=== PATIENT | male | born 1935 | race Caucasian/White ===

== ENCOUNTER 2018-09-08 14:38 | Emergency (ER) | payer MEDICARE ==
[2018-09-08 15:22] VITALS: BP 130/70
--- NOTE | 2018-09-08 15:44 | UC ---
Shoulder Pain HPI - HPI Summary HPI Summary: 82 y/o male with h/o stents, on plavix, with h/o L shoulder pain, was seen in [place] diagnosed with bursitis, given medrol dose lalo with minimal relief, pain now continues, decreased ROM. tylenol no relief. No prior PT, no injections in past - History of Current Complaint Chief Complaint: UCUpperExtremity Stated Complaint: SHOULDER PAIN Time Seen by Provider: 09/08/18 15:29 Hx Obtained From: Patient Onset/Duration: Gradual Onset, Lasting Weeks, Worse Since - worsening since steroids stopped Severity Initially: Moderate Severity Currently: Moderate Location Of Pain: Is Discrete @ - left shoulder Pain Intensity: 5 Pain Scale Used: 0-10 Numeric - Allergies/Home Medications Allergies/Adverse Reactions: Allergies Allergy/AdvReac Type Severity Reaction Status Date / Time No Known Allergies Allergy Verified 09/08/18 15:22 Home Medications: Home Medications Apixaban [Eliquis] 5 mg PO BID 09/08/18 [History Confirmed 09/08/18] PMH/Surg Hx/FS Hx/Imm Hx Previously Healthy: Yes - cardiac stents - Surgical History Surgical History: Yes Surgery Procedure, Year, and Place: Mitral valve replacement x 4, Aortic valve x 2 - Family History Known Family History: Positive: Cardiac Disease - Brother - Social History Alcohol Use: Rare Substance Use Type: None Smoking Status (MU): Never Smoked Tobacco Have You Smoked in the Last Year: No Review of Systems Motor: Decreased ROM Musculoskeletal: Arthralgia, Myalgia Is Patient Immunocompromised?: No All Other Systems Reviewed And Are Negative: Yes Physical Exam Triage Information Reviewed: Yes Appearance: Well-Appearing, No Pain Distress, Well-Nourished Vital Signs: Initial Vital Signs Temp 98.0 F 09/08/18 15:16 Pulse 60 09/08/18 15:16 Resp 18 09/08/18 15:16 BP 130/70 09/08/18 15:16 Pulse Ox 99 09/08/18 15:16 Vital Signs Reviewed: Yes Musculoskeletal: Positive: Other: - L shoulder- decreased ROM FF- 70, ABD- 70, + speed, + empty can, TTP over biceps tendon. neg bear, belly. sensation intact, decreased strenght with resistence to FF, ABD. Neurological Exam: Normal Psychological Exam: Normal Skin Exam: Normal Shoulder Course/Dx - Course Course Of Treatment: attempted to get into ortho, will try to make appointment for wednesday. Tylenol for pain, ice. exercises given - Differential Dx/Diagnosis Provider Diagnoses: rotator cuff tendonitis Discharge - Sign-Out/Discharge Documenting (check all that apply): Patient Departure All imaging exams completed and their final reports reviewed: No Studies - Discharge Plan Condition: Good Disposition: HOME Patient Education Materials: Rotator Cuff Tendinitis (ED) Referrals: Alexei Ruby MD [Primary Care Provider] - Additional Instructions: - Follow up with orthopedics [phone] - Tylenol as needed for pain, Ice - continue to do shoulder exercises - Billing Disposition and Condition Condition: GOOD Disposition: Home
--- NOTE | 2018-09-08 16:41 | RAD ---
INDICATION: Left shoulder pain x1 month COMPARISON: Chest x-ray June 17, 2017 TECHNIQUE: 4 views of the left shoulder were obtained. FINDINGS: Stable healed rib fractures are noted at the lateral left ribs. There is evidence of a healed left mid clavicle fracture as well. Overlying the superior lateral left humeral head there is flattening of the normal contour of the humeral head as well as faint linear densities adjacent to the bone. There is mild sclerosis of the bony glenoid labrum with irregularity along the inferior margin. IMPRESSION: 1. FLATTENING OF THE SUPERIOR LATERAL MARGIN OF THE LEFT HUMERAL HEAD WITH MILD FOCAL SCLEROSIS COULD BE SEEN IN THE SETTING OF PRIOR DISLOCATION WHICH ALSO CORRESPONDS TO THE SCLEROTIC IRREGULARITY ALONG THE INFERIOR MARGIN OF THE BONY GLENOID LABRUM. 2. LINEAR DENSITIES IMMEDIATELY ADJACENT TO THIS PORTION OF THE HUMERAL HEAD COULD BE SEEN IN THE SETTING OF CALCIFICATION OF THE SUPRASPINATUS TENDON. 3. EVIDENCE OF HEALED LEFT RIB AND LEFT CLAVICLE FRACTURES.. If the patient's symptoms persist, follow-up imaging is recommended.
== END 2018-09-08 16:31 | disposition home or self-care (01) ==
LOC: UCEAST 14:38
DX: M75.102 Unspecified rotator cuff tear or rupture of left shoulder, not specified as traumatic (principal); Z79.01 Long term (current) use of anticoagulants; Z95.2 Presence of prosthetic heart valve; Z95.5 Presence of coronary angioplasty implant and graft; Z82.49 Family history of ischemic heart disease and other diseases of the circulatory system
CPT/HCPCS: 99212; G0463

== ENCOUNTER 2019-12-18 11:33 | Observation (INO) | payer MEDICARE ==
[2019-12-18] MEDS ORDERED: Diazepam TAB(*) 5 MG ONE (14:21)
[2019-12-18] MEDS ORDERED: ceFAZolin 1 GM* X ONE DOSE (AddVan) IVPB ×2 (14:30)
[2019-12-18] MEDS ORDERED: Lidocaine 1% INJ* 10 MG/ML 30 ML SDV ONE (15:00)
[2019-12-18] MEDS ORDERED: fentaNYL* 50 MCG/ML 2 ML VIAL (100 MCG VIAL) ONE (15:00)
[2019-12-18] MEDS ORDERED: Midazolam* 1 MG/ML 5 ML VIAL (5 MG) ONE (15:00)
[2019-12-18] MEDS ORDERED: ceFAZolin VIAL 1 GM in NS *SYRINGE * * 10 ML ONE (15:00)
[2019-12-18] MEDS ORDERED: Acetaminophen TAB* 325 MG PO PRN (16:21)
[2019-12-18] MEDS ORDERED: oxyCODONE/Acetamin 5/325 MG* TAB PO PRN (16:21)
[2019-12-18] MEDS: amLODIPine TAB* 5 MG PO SCH (21:43)
[2019-12-18] MEDS: ceFAZolin 1 GM ADVAN(*) 1 GM in NS 0.9% 50 ML* 50 ML IVPB SCH (21:43)
--- NOTE | 2019-12-19 03:46 | OP ---
CC: Dr. Pérez; Dr. Ruby * DATE OF OPERATION: 12/18/19 - ROOM #447 DATE OF : 37 SURGEON: Cassius Fairchild MD ANESTHESIA: Local anesthesia with conscious sedation. PRE-OP DIAGNOSES: 1. Atrial fibrillation. 2. Tachybrady syndrome. POST-OP DIAGNOSES: 1. Atrial fibrillation. 2. Tachybrady syndrome. OPERATIVE PROCEDURE: Single chamber pacemaker implantation. INDICATIONS: The patient is an 84-year-old gentleman with a history of atrial fibrillation, history of aortic valve replacement, who has been followed by Dr. Pérez. Event monitor recently has shown episodes of tachybrady syndrome with heart rates down to 40 beats per minute, has heart rates up to 120 beats per minute. The patient also has severe carotid stenosis, which is concerning for low perfusion given his low heart rates. Permanent pacemaker was recommended. ESTIMATED BLOOD LOSS: Nil. COMPLICATIONS: None. DESCRIPTION OF PROCEDURE: The patient was brought to the procedure room in a fasting state. Informed consent had been obtained prior to the procedure. All labs had been reviewed. The patient's Eliquis had been held for 2 days. The patient was placed supine on the procedure table. His left deltopectoral area was cleaned and draped in the usual fashion. 1% lidocaine was used for local anesthesia. Under ultrasound guidance, the axillary vein was entered by a Seldinger technique and a guidewire was placed. A 3-cm incision was made in the pectoral area and blunt dissection was carried down to the pectoral fascia. A pocket was fashioned for the pacemaker. Over the guidewire, a 7-Indian sheath introducer was placed, through which a right ventricular lead was advanced to the RV apex. The right ventricular lead is a Medtronic model 5076, serial #[id number] and had a R-wave sensitivity of 5.8, impedance 795 ohms, threshold 0.4 volts at 0.5 milliseconds. The ventricular lead was sutured to the pectoral fascia. The pocket was flushed. A generator was attached to the ventricular lead. The generator is a Medtronic model W3SR01, serial # [id number]. The device was placed in the pocket. The surgical incision was closed in 3 layers. The patient was returned to the holding area in stable condition. [id number]/[facility] #: [id number] VENANCIO
[2019-12-19] MEDS: ceFAZolin 1 GM ADVAN(*) 1 GM in NS 0.9% 50 ML* 50 ML IVPB SCH (06:03)
[2019-12-19] MEDS ORDERED: Aspirin EC TAB* 81 MG TAB.EC PO SCH (09:00)
[2019-12-19] MEDS ORDERED: Metoprolol Tartrate TAB* 25 MG PO SCH (09:00)
[2019-12-19] MEDS ORDERED: Losartan TAB* 25 MG PO SCH (09:00)
[2019-12-19] MEDS: amLODIPine TAB* 5 MG PO SCH (09:19)
--- NOTE | 2019-12-19 10:44 | DS ---
CC: Dr. Ruby * DISCHARGE SUMMARY: DATE OF ADMISSION: 12/18/19 ANTICIPATED DATE OF DISCHARGE: Pending no complications, 12/19/19. ATTENDING PHYSICIAN: Dr. Cassius Fairchild, Cardiology.* (DICTATED BY JIL LUIS NP) PRIMARY MOTHERCRAFT NURSE: Dr. Dayne Pérez. PRIMARY PHYSICIAN: Dr. Ruby. ADMITTING DIAGNOSES: 1. Tachybrady syndrome here for elective single-chamber pacemaker implantation. 2. Permanent atrial flutter, on Eliquis therapy. 3. History of high-grade left internal carotid artery stenosis and left vertebral artery stenosis on aspirin and Crestor therapy to follow up with vascular surgeon Dr. Richter on 12/21/19. 4. History of hypertension, on amlodipine and Inspira therapy DISCHARGE DIAGNOSES: 1. Tachybrady syndrome status post successful single-chamber pacemaker implantation 12/18/19, will be discharged home on Keflex 250 mg p.o. t.i.d. for 3 days then stop. To resume Eliquis 12/19/19 at 6 p.m. Device interrogation prior discharge was normal. Right ventricle lead pacing threshold was 0.5 V at 0.4 milliseconds. To follow up with Shaneka Clay, 12/26/19 at 9:15 a.m. 2. History of permanent atrial fibrillation, on Eliquis therapy. 3. History of high-grade internal carotid artery stenosis and left vertebral artery stenosis following Dr. Richter, on aspirin and Crestor therapy. 4. History hypertension, on amlodipine and Avapro therapy. PROCEDURES PERFORMED: The patient underwent successful single-chamber pacemaker implantation by Dr. Cassius Fairchild 12/18/19. The right ventricle lead as a Medtronic model 5076, serial number [id number]. The generator is Medtronic model W3SR01, serial number [id number] COMPLICATIONS: None thus far. COURSE HOSPITAL STAY: This is a pleasant 84-year-old male patient who follows Dr. Dayne Pérez of our practice due to notable history of permanent AFib, on Eliquis therapy; high-grade left internal carotid artery stenosis and left vertebral artery stenosis, to see Dr. Richter, vascular surgeon in consultation on 12/21/19. He recently underwent an outpatient ambulatory event monitor which revealed a tachybrady syndrome with heart rate as low as 40 beats per minute and as high as 20 beats per minute. Given concern for low perfusion due to heart rates in the setting of high-grade carotid and vertebral artery stenosis, the patient presented for elective permanent pacemaker implantation 12/18/19. Prior to having procedures performed, he had basic blood work on 12/15/19. White count 11.4, hemoglobin 15.8, sodium 142, potassium 4.5, creatinine 1.29. He underwent the above-mentioned procedure, post procedure was transferred 4 [facility] where he has been monitored on telemetry. He offers no complaints at this current time. Most recent set of vital signs: Temperature 97.4, pulse 63 , respirations 16, oxygenation 96% on room air blood pressure 145/67. There is no blood work this morning to review. He offers no complaints. He has been up and ambulating in halls with no difficulty. Denies chest pain, shortness of breath, dizziness, or palpitations. He is to resume Eliquis starting at 6 p.m. on 12/19/19. This morning device interrogation was reviewed. Right ventricular pacing threshold is 0.5 V 0.4 milliseconds. There was no VT. He has known permanent AF. He is ventricularly pacing 81.3% of the time, normal device function. This morning's chest x-ray was negative for cardiopulmonary process, left anterior device site was examined. There is slight tenderness with palpation, no evidence of pocket hematoma. No inflammation. No oozing. No bruising. He has 6 enid in situ, edges are well approximated. Again, no evidence of pocket hematoma, dressing was changed. Wound care was reviewed with patient. The patient is stable and asymptomatic. Plan is discharge home today. DISCHARGE CONDITION/ DISPOSITION: Stable to be discharged home. DISCHARGE MEDICATIONS: Include: 1. Keflex 250 mg p.o. t.i.d. 2. Aspirin 81 mg a day. 3. Eliquis 5 mg p.o. b.i.d. (first dose 6 p.m. 12/19/19). 4. Amlodipine 5 mg p.o. b.i.d. 5. Avapro 150 mg p.o. b.i.d. 6. Inspra 25 mg a day. 7. Rosuvastatin 10 mg a day. 8. Fish oil 1000 mg p.o. daily. 9. Multivitamin as directed. 10. K-Dur 20 mEq a day. DISCHARGE ACTIVITY: The patient was advised to not lift more than 5 pounds until further directed. He is aware he may shower starting 12/20/19, however, he is not to swim, bathe, or soak left anterior device site wound. I reviewed wound care. He is aware to change dressing daily until 12/25/19, then leave open to air. He is aware that if he should notice any oozing, inflammation, irritation, swelling, or pain he is to contact our practice. I advised him to wear left arm immobilizer as directed. He states that he is compliant and is aware to not lift the left arm above shoulder or to reach behind him. I informed him that it is okay if he does not wear left immobilizer during daytime hours if he is compliant with left arm restrictions, however, he needs to wear at nighttime. He is aware to avoid working out until further directed as well. We will discuss driving at follow up appointment on 12/26/19. Outpatient labs to be obtained, none. FOLLOWUP APPOINTMENTS: 1. The patient is to follow primary Dr. Ruby in 7 to 10 days number. 2. Shaneka Clay on 12/18/19 at 9:[address] Richter on 12/21/[address] Hammonds has personally seen and examined the patient and agrees with the above plan. JIL LUIS, JANNA [id number]/[facility] #: [id number] VENANCIO
[2019-12-19 12:03] VITALS: BP 134/72
== END 2019-12-19 12:10 | disposition home or self-care (01) ==
LOC: CHICATH 11:33 → INTOOBSV 16:21 → MEDTELE 16:21
PROVIDERS: ADMIT Specialist; ATTEND Specialist
DX: I49.3 Ventricular premature depolarization (principal); I48.3 Typical atrial flutter; I49.5 Sick sinus syndrome; I48.21 Permanent atrial fibrillation; I25.10 Atherosclerotic heart disease of native coronary artery without angina pectoris; I10 Essential (primary) hypertension; E78.00 Pure hypercholesterolemia, unspecified; R94.31 Abnormal electrocardiogram [ECG] [EKG]; Z79.82 Long term (current) use of aspirin; Z79.899 Other long term (current) drug therapy; Z79.01 Long term (current) use of anticoagulants; Z95.4 Presence of other heart-valve replacement
CPT/HCPCS: 33207; 71045; 71046; 93005; 99156; 99157; A9270-GY; C1786; C1892; C1898; G0378; J0690; J2250; J3010

== ENCOUNTER 2020-01-01 19:11 | Emergency (ER) | payer MEDICARE ==
--- OUTSIDE RECORDS SUMMARY | 2020-01-01 19:26 | XMS REPORT | Continuity of Care Document ---
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 Onset: 03/30/2012 Transplantation of heart valve Dayne Pérez M.D. Onset: 03/30/2012 Coronary arteriosclerosis Dayne Pérez M.D. Onset: 03/30/2012 Benign essential hypertension Dayne Pérez M.D. Onset: 03/30/2012 Malignant essential hypertension Dayne Pérez M.D. Onset: 06/04/2014 Pure hypercholesterolemia Dayne Pérez M.D. Onset: 06/04/2014 Hemoptysis Michelle Geller MD Onset: 07/21/2017 Social History Type Date Description Comments Sex Unknown Tobacco Use Start: Unknown Never Smoked Cigarettes Smoking Status Reviewed: 01/01/20 Never Smoked Cigarettes ETOH Use Denies alcohol use Tobacco Use Start: Unknown Patient has never smoked Recreational Drug Use Never Used Drugs Exercise Type/Frequency Exercises regularly 30 mins on treadmill 3 days weekly, and ellipitical and free weights. Bikes in summer Allergies, Adverse Reactions, Alerts Description No Known Drug Allergies Medications Active Medications SIG Qnty Indications Ordering Provider Date Eliquis 1 by mouth twice 180tabs I48.3 Dayne Paul 04/06/2018 5mg Tablets a day Edwina Pérez Crestor 1 by mouth every 90tabs Dayne Paul 08/11/2016 10mg Tablets day Edwina Pérez Inspra 1 by mouth every 30tabs Shaneka Clay, 05/14/2015 25mg Tablets day N.P. Avapro 1 by mouth every 90tabs Dayne Paul 12/29/2012 150mg Tablets day Edwina Pérez Potassium Chloride 1 by mouth every 90tabs Dayne Paul 02/09/2012 ER day Edwina Pérez 20Meq Tablets ER Amlodipine Besylate 1 by mouth twice 180tabs Dayne Paul 11/19/2011 a day Edwina Pérez 5mg Tablets Multi Vitamin 1 by mouth every Unknown day Tablets Fish Oil 1 tab by mouth Unknown 1000mg every morning Capsules Cephalexin Take 1 tab po 20caps Sabrina Ferguson, 500mg qid M.D. Capsules Immunizations Description No Information Available Vital Signs Date Vital Result Comment 01/01/2020 8:56am Height 69.5 inches 5'9.50" Weight 175.00 lb Heart Rate 60 /min BP Systolic 132 mmHg BP Diastolic 80 mmHg Respiratory Rate 12 /min Body Temperature 96.7 F Pain Level 2 BMI (Body Mass Index) 25.5 kg/m2 12/29/2019 11:28am Height 70 inches 5'10" Weight 176.00 lb with shoes Heart Rate 72 /min BP Systolic Sitting 130 mmHg rue reg cuff BP Diastolic Sitting 68 mmHg rue reg cuff BP Systolic Standing 128 mmHg rue reg cuff BP Diastolic Standing 72 mmHg rue reg cuff Respiratory Rate 14 /min BMI (Body Mass Index) 25.3 kg/m2 Ejection Fraction 55-60% echo.07/08/17 Results Test Acquired Date Facility Test Result H/L Range Note Pre Cath 12/15/2019 [facility] Partial 43.2 seconds High 26.0- 38.[address] [place] [address] PTT [phone] CBC Auto 12/15/2019 [facility] White Blood 11.4 10^3/uL High 3.5-10.[address] [place] [address] [phone] Red Blood Count 5.03 10^6/uL Normal 4.18-5.48 Hemoglobin 15.8 g/dL Normal 14.0-18.0 Hematocrit 47 % Normal 42-52 Mean Corpuscular Volume 92 fL Normal 80-94 Mean Corpuscular Hemoglobin 31 pg Normal 27-31 Mean Corpuscular HGB Conc 34 g/dL Normal 31-36 Red Cell Distribution Width 14 % Normal 10-15 Platelet Count 177 10^3/uL Normal 150-450 Mean Platelet Volume 8.2 fL Normal 7.4-10.4 Abs Neutrophils 4.1 10^3/uL Normal 1.5-7.7 Abs Lymphocytes 6.0 10^3/uL High 1.0-4.8 Abs Monocytes 1.0 10^3/uL High 0-0.8 Abs Eosinophils 0.3 10^3/uL Normal 0-0.6 Abs Basophils 0.1 10^3/uL Normal 0-0.2 Abs Nucleated RBC 0.0 10^3/uL Granulocyte % 36.1 % Lymphocyte % 52.5 % Monocyte % 8.5 % Eosinophil % 2.3 % Basophil % 0.6 % Nucleated Red Blood Cells % 0.2 Inr/Protime 12/15/2019 [facility] Inr 1.09 Normal 0.82-1.[address] [place] [address] [phone] Basic Metabolic 12/15/2019 [facility] Sodium 142 mmol/L Normal 135-145 [place] [address] [phone] Potassium 4.5 mmol/L Normal 3.5-5.0 Chloride 106 mmol/L Normal 101-111 Co2 Carbon Dioxide 29 mmol/L Normal 22-32 Anion Gap 7 mmol/L Normal 2-11 Glucose 125 mg/dL High 70-100 Blood Urea Nitrogen 29 mg/dL High 6-24 Creatinine 1.29 mg/dL High 0.67-1.17 BUN/Creatinine Ratio 22.5 High 8-20 Calcium 10.2 mg/dL Normal 8.6-10.3 Egfr Non- 53.2 >60 Egfr 64.4 >60 2 Laboratory test 12/15/2019 [facility] Pathologist (SEE [address] Review NOTE) [place] [address] [phone] Laboratory test 12/08/2019 [facility] Pathologist (SEE [address] Review NOTE) [place] [address] [phone] Manual 12/08/2019 [facility] Immature 1.0 % Normal 0-[address] [place] [place] [address] [phone] Neutrophil % 44.0 % Band % 1.0 % Normal 0-8 Lymphocytes % 27.0 % Monocytes % 6.0 % Eosinophils % 1.0 % Variant Lymph % 21.0 % High 0-6 RBC Morphology Normal Normal Laboratory test 12/08/2019 [facility] Magnesium 2.2 mg/dL Normal 1.9-2.[address] [place] [address] [phone] TSH (Thyroid Stim Horm) 2.40 mcIU/mL Normal 0.34-5.60 CBC Auto 12/08/2019 [facility] White Blood 14.6 10^3/uL High 3.5-10.[address] [place] [address] [phone] Red Blood Count 5.11 10^6/uL Normal 4.18-5.48 Hemoglobin 16.3 g/dL Normal 14.0-18.0 Hematocrit 47 % Normal 42-52 Mean Corpuscular Volume 92 fL Normal 80-94 Mean Corpuscular Hemoglobin 32 pg High 27-31 Mean Corpuscular HGB Conc 35 g/dL Normal 31-36 Red Cell Distribution Width 14 % Normal 10-15 Platelet Count 188 10^3/uL Normal 150-450 Mean Platelet Volume 8.5 fL Normal 7.4-10.4 Abs Neutrophils 5.6 10^3/uL Normal 1.5-7.7 Abs Lymphocytes 7.5 10^3/uL High 1.0-4.8 5 Abs Monocytes 1.1 10^3/uL High 0-0.8 Abs Eosinophils 0.3 10^3/uL Normal 0-0.6 Abs Basophils 0.1 10^3/uL Normal 0-0.2 Abs Nucleated RBC 0.0 10^3/uL Granulocyte % 38.6 % Lymphocyte % 51.2 % Monocyte % 7.7 % Eosinophil % 2.2 % Basophil % 0.3 % Nucleated Red Blood Cells % 0.1 Lipid Profile 12/08/2019 [facility] Triglycerides 141 mg/dL 6 (Trig/Chol/HDL) [address] [place] [address] [phone] Cholesterol 141 mg/dL 7 HDL Cholesterol 37.2 mg/dL 8 LDL Cholesterol 76 mg/dL 9 Comp Metabolic 12/08/2019 [facility] Sodium 141 mmol/L Normal 135-[address] [place] [address] [phone] Potassium 4.8 mmol/L Normal 3.5-5.0 Chloride 106 mmol/L Normal 101-111 Co2 Carbon Dioxide 28 mmol/L Normal 22-32 Anion Gap 7 mmol/L Normal 2-11 Glucose 150 mg/dL High 70-100 Blood Urea Nitrogen 28 mg/dL High 6-24 Creatinine 1.18 mg/dL High 0.67-1.17 BUN/Creatinine Ratio 23.7 High 8-20 Calcium 10.3 mg/dL Normal 8.6-10.3 Total Protein 7.2 g/dL Normal 6.4-8.9 Albumin 4.7 g/dL Normal 3.2-5.2 Globulin 2.5 g/dL Normal 2-4 Albumin/Globulin Ratio 1.9 Normal 1-3 Total Bilirubin 0.80 mg/dL Normal 0.2-1.0 Alkaline Phosphatase 129 U/L High 34-104 Alt 22 U/L Normal 7-52 Ast 23 U/L Normal 13-39 Egfr Non- 59.0 >60 Egfr 71.3 >60 10 Lipid Panel - 12/08/2019 [facility] Creatine 95 U/L Normal 10- [address] Kinase(CK) [place] [address] [phone] Standard intensity warfarin therapeutic range: 2.0-3.0 High intensity warfarin therapeutic range: 2.5-3.5 2 Because ethnic data is not always readily available, this report includes an eGFR for both -Americans and non- Americans. The National Kidney Disease Education Program (NKDEP) does not endorse the use of the MDRD equation for patients that are not between the ages of 18 and 70, are , have extremes of body size, muscle mass, or nutritional status, or are non- or non-. According to the National Kidney Foundation, irrespective of diagnosis, the stage of the disease is based on the level of kidney function: Stage Description GFR(mL/min/1.73 m(2)) 1 Kidney damage with normal or decreased GFR 90 2 Kidney damage with mild decrease in GFR 60-89 3 Moderate decrease in GFR 30-59 4 Severe decrease in GFR 15-29 5 Kidney failure <15 (or dialysis) 3 Leukocytosis with mild absolute lymphocytosis noted. Appropriate clinical follow-up and additional studies is warranted. Reviewed by Dr. Velásquez 4 Persistent mild leukocytosis with mild absolute lymphocytosis. A Low-grade lymphoproliferative disorder cannot be excluded. Additional studies as clinically warranted. Reviewed by Dr. Velásquez 5 Consistent with Previous Results Reported on 09/25/19. 6 Desirable: <150 Borderline High: 150-199 High: 200-499 Very High: >500 7 Desirable: <200 Borderline High: 200-239 High: >239 8 Low: <40 Desirable: 40-60 High: >60 9 Desirable: <100 Near Optimal: 100-129 Borderline High: 130-159 High: 160-189 Very High: >189 10 Because ethnic data is not always readily available, this report includes an eGFR for both -Americans and non- Americans. The National Kidney Disease Education Program (NKDEP) does not endorse the use of the MDRD equation for patients that are not between the ages of 18 and 70, are , have extremes of body size, muscle mass, or nutritional status, or are non- or non-. According to the National Kidney Foundation, irrespective of diagnosis, the stage of the disease is based on the level of kidney function: Stage Description GFR(mL/min/1.73 m(2)) 1 Kidney damage with normal or decreased GFR 90 2 Kidney damage with mild decrease in GFR 60-89 3 Moderate decrease in GFR 30-59 4 Severe decrease in GFR 15-29 5 Kidney failure <15 (or dialysis) Procedures Date Code Description Status 12/19/2019 72193 EKG, Interpretation Only Completed 12/18/2019 00073 Perm Pacemaker Ventricular Completed 11/11/2019 18981 Event Monitor/Phys Review/Interp. 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 premature Housing Quality Standard Inspector depolarization I48.3 Typical atrial flutter I49.5 Sick sinus syndrome Z95.2 Presence of prosthetic heart valve I73.9 Peripheral vascular disease, unspecified Office Visit 11/06/2019 [facility] Dayne Paul I49.3 Ventricular 1:40p Cardiology Edwina Pérez premature depolarization R42 Dizziness and giddiness I48.3 Typical atrial flutter I35.0 Nonrheumatic aortic (valve) stenosis E78.00 Pure hypercholesterolemia, unspecified Office Visit 07/03/2019 9:00a [facility] Shaneka SJose I49.3 Ventricular Cardiology Foster, N.P. premature depolarization R42 Dizziness and giddiness I48.3 Typical atrial flutter I35.0 Nonrheumatic aortic (valve) stenosis E78.00 Pure hypercholesterolemia, unspecified I25.10 Athscl heart disease of [place] coronary artery w/o ang pctrs Assessments Date Code Description Provider 01/01/2020 R60.0 Localized edema Carolynn English, [facility] 01/01/2020 R60.0 Localized edema Sabrina Ferguson M.D. 01/01/2020 M25.522 Pain in left elbow Carolynn Tameka, RPA-C 01/01/2020 M25.522 Pain in left elbow Sabrina Ferguson M.D. 12/29/2019 I48.3 Typical atrial flutter Shaneka S. Obed, N.P. 12/29/2019 I49.3 Ventricular premature depolarization Shaneka S. Obed, N.P. 12/29/2019 Z95.2 Presence of prosthetic heart valve Shaneka S. Obed, N.P. 12/29/2019 I73.9 Peripheral vascular disease, unspecified Shaneka S. Foster, N.P. 12/29/2019 M25.522 Pain in left elbow Shaneka S. Obed, N.P. 12/25/2019 Z95.0 Presence of cardiac pacemaker Shaneka S. Obed, N.P. 12/25/2019 I48.3 Typical atrial flutter Shaneka Clay, N.P. 12/25/2019 I49.3 Ventricular premature depolarization Shaneka Clay, N.P. 12/25/2019 Z95.2 Presence of prosthetic heart valve Shaneka Clay, N.P. 12/25/2019 I73.9 Peripheral vascular disease, unspecified Shaneka Clay, N.P. 12/25/2019 L76.32 Postprocedural hematoma of skin and Shaneka Clay, N.P. subcutaneous tissue following other procedure 12/21/2019 Z95.0 Presence of cardiac pacemaker Cait Thtanya, PIPELINE GANG SUPERVISOR 12/21/2019 I49.5 Sick sinus syndrome Cait Patton, PIPELINE GANG SUPERVISOR 12/21/2019 I48.3 Typical atrial flutter Cait Patton, PIPELINE GANG SUPERVISOR 12/18/2019 I49.5 Sick sinus syndrome Cassius Fairchild M.D. 12/15/2019 I49.3 Ventricular premature depolarization Cassius Fairchild M.D. 12/15/2019 I48.3 Typical atrial flutter Cassius Fairchild M.D. 12/15/2019 I49.5 Tachycardia-bradycardia Cassius Fairchild M.D. 12/15/2019 Z95.2 Presence of prosthetic heart valve Cassius Fairchild M.D. 12/15/2019 I73.9 Peripheral vascular disease, unspecified Cassius Fairchild M.D. 11/11/2019 R42 Dizziness and giddiness Dayne Pérez M.D. 11/11/2019 I48.92 Unspecified atrial flutter Dayne Pérez M.D. 11/06/2019 I49.3 Ventricular premature depolarization Dayne Pérez M.D. 11/06/2019 R42 Dizziness and giddiness Dayne Pérez M.D. 11/06/2019 I48.3 Typical atrial flutter Dayne Pérez M.D. 11/06/2019 I35.0 Nonrheumatic aortic (valve) stenosis Dayne Pérez M.D. 11/06/2019 E78.00 Pure hypercholesterolemia, unspecified Dayne Pérez M.D. 07/03/2019 I49.3 Ventricular premature depolarization Shaneka Clay, N.P. 07/03/2019 R42 Dizziness and giddiness Shaneka Clay, N.P. 07/03/2019 I48.3 Typical atrial flutter Shaneka Clay, N.P. 07/03/2019 I35.0 Nonrheumatic aortic (valve) stenosis Shaneka Clay, N.P. 07/03/2019 E78.00 Pure hypercholesterolemia, unspecified Shaneka Clay, N.P. 07/03/2019 I25.10 Atherosclerotic heart disease of [place] Shaneka Clay, N.P. coronary artery with Plan of Treatment Future Appointment(s):01/15/2020 9:45 am - Sabrina Ferguson M.D. at [facility] at [id number]/15/2020 11:30 am - Ica Pacer Schedule at [facility]05/07/2020 3:40 pm - Dayne Pérez M.D. at [facility]01/01/2020 - Carolynn English, [facility]-CR60.0 Localized edemaFollow up: Follow up: 2 edcdmT98.522 Pain in left elbow Functional Status Description No Information Available Mental Status Description No Information Available Referrals Refer to Dr Reason for Referral Status Appt Date Cassius Fairchild MD aflutter with pauses up to 3.8 sec. uncertain Sent 2019 relation to sx's of blurred vision. event monitor in place. carotid disease. please evaluate for pacer. [address] [place] [address] [phone] Jeffrey Mendiola MD carotid stenosis high grade. Sent [address] [place] [address] [phone]
--- OUTSIDE RECORDS SUMMARY | 2020-01-01 19:26 | XMS REPORT | Continuity of Care Document ---
:1935 External Reference #:[id number] Author Name Kaye Pimentel M.D. 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 Onset: 06/07/2014 Social History Type Date Description Comments Sex Unknown Tobacco Use Start: Unknown Nonsmoker Allergies, Adverse Reactions, Alerts Active Allergies Reaction Severity Comments Date NKDA 02/10/2012 Inactive Allergies Nka 03/14/1999 Medications Active Medications SIG Qnty Indications Ordering Provider Date Cephalexin 1 by mouth 30caps L03.113 Kaye Pimentel, 12/29/2019 500mg Capsules three times M.D. daily . Avapro 1 by mouth Alexei Ruby, 12/10/2017 150mg Tablets every day M.D. Crestor 1 by mouth 90tabs Alexei Ruby, 07/14/2017 5mg Tablets every day M.D. Naproxen 1 po bid prn 20tabs Alexei Ruby, 06/07/2014 500mg Tablets pain M.D. take with food Amlodipine Besylate 1 po bid 30tabs Unknown 5mg Tablets KCL 1 po qd Unknown 20Meq Tablet Metoprolol Tartrate 1/2 pill once a 60tabs Unknown 50mg day Tablets Xarelto One 5mg tab by Unknown 10mg Tablets mouth twice daily History Medications Prednisone 3 x 3 days 2 x 18tabs Alexei Ruby, 07/19/2019 - 20mg Tablets 3 days 1 x 3 M.DJose 07/19/2019 days Halobetasol Propionate Use bid 30gm Alexei Ruby, 07/19/2019 - M.DJose 07/19/2019 0.05% Cream Medications Administered in Office Medication SIG Qnty Indications Ordering Provider Date Injection Subcutaneous Or Alexei Ruby M.D. 06/07/2014 Intramuscular Injection Immunizations CPT Code Status Date Vaccine Lot # [id number] Given 10/13/2019 Pneumococcal Conjugate Vacc-13 [id number] Given 09/07/2018 High-Dose, Influenza Virus Vacccine-fluzone 65 and older 32515 Given 09/27/2017 High-Dose, Influenza Virus Vacccine-fluzone 65 [id number] and older 91904 Given 09/07/2016 High-Dose, Influenza Virus Vacccine-fluzone 65 and older 19756 Given 09/25/2015 High-Dose, Influenza Virus Vacccine-fluzone 65 and older 43825 Given 10/01/2014 High-Dose, Influenza Virus Vacccine-fluzone 65 and older 26338 Given 11/17/2012 DO Not Use Split Influenza Virus Vaccine 98067 Given 07/21/2011 DO Not Use Split Influenza Virus Vaccine 66369 Given 08/13/2010 DO Not Use Split Influenza Virus Vaccine 48413 Given 05/21/2010 Tdap Tetanus, W Pertussis [id number] 87945 Given 12/01/2007 DO Not Use Split Influenza Virus Vaccine [id number] 42928 Given 10/29/2006 DO Not Use Split Influenza Virus Vaccine 34052 Given 10/02/2005 Pneumococcal Immunization 07967 Given 10/02/2005 DO Not Use Split Influenza Virus Vaccine 02734 Given 10/17/2004 DO Not Use Split Influenza Virus Vaccine 81232 Given 11/14/2003 DO Not Use Split Influenza Virus Vaccine 08656 Given 11/14/2003 DO Not Use Split Influenza Virus Vaccine 18832 Given 09/28/2002 DO Not Use Split Influenza Virus Vaccine Vital Signs Date Vital Result Comment 12/29/2019 1:45pm BP Systolic 148 mmHg BP Diastolic 78 mmHg Heart Rate 60 /min Body Temperature 97.9 F Respiratory Rate 16 /min Height 69.5 inches 5'9.50" Weight 176.00 lb BMI (Body Mass Index) 25.6 kg/m2 10/13/2019 9:02am BP Systolic 138 mmHg BP Diastolic 86 mmHg Heart Rate 58 /min Body Temperature 98.1 F Respiratory Rate 15 /min O2 % BldC Oximetry 97 % Ra Height 69.5 inches 5'9.50" Weight 174.00 lb BMI (Body Mass Index) 25.3 kg/m2 Results Test Acquired Date Facility Test Result H/L Range Note Comp Metabolic Panel 12/08/2019 [facility] Sodium 141 mmol/L Normal 135-145 Potassium 4.8 mmol/L Normal 3.5-5.0 Chloride 106 [...] Egfr Non- 59.0 >60 Egfr 71.3 >60 1 Lipid Profile (Trig/Chol/HDL) 12/08/2019 [facility] Triglycerides 141 mg/dL 2 Cholesterol 141 mg/dL 3 HDL Cholesterol 37.2 mg/dL 4 LDL Cholesterol 76 mg/dL 5 Laboratory test finding 12/08/2019 [facility] Magnesium 2.2 mg/dL Normal 1.9- 2.7 Creatine Kinase(CK) 95 U/L Normal 10-223 TSH (Thyroid Stim Horm) 2.40 mcIU/mL Normal 0.34-5.60 CBC Auto Diff 12/08/2019 [facility] White Blood Count 14.6 10^3/uL High 3.5- 10.8 Red Blood Count 5.11 10^6/uL Normal 4.18-5.48 [...] 1.5-7.7 Abs Lymphocytes 7.5 10^3/uL High 1.0-4.8 6 Abs Monocytes 1.1 10^3/uL High 0-0.8 Abs Eosinophils 0.3 10^3/uL Normal 0-0.6 Abs Basophils 0.1 10^3/uL Normal 0-0.2 Abs Nucleated RBC 0.0 10^3/uL Granulocyte % 38.6 % Lymphocyte % 51.2 % Monocyte % 7.7 % Eosinophil % 2.2 % Basophil % 0.3 % Nucleated Red Blood Cells % 0.1 Manual Differential 12/08/2019 [facility] Immature Granulocytes 1.0 % Normal 0- 9 Neutrophil % 44.0 % Band % 1.0 % Normal 0-8 Lymphocytes % 27.0 % Monocytes % 6.0 % Eosinophils % 1.0 % Variant Lymph % 21.0 % High 0-6 RBC Morphology Normal Normal Laboratory test 12/08/2019 [facility] Pathologist Review (SEE NOTE) 7 finding Laboratory test 10/13/2019 [facility] Hemoglobin A1c 6.6 % % High 4.1-5. finding (607)- - (Fma) 7 1 Because ethnic data is not always readily [...] 15-29 5 Kidney failure <15 (or dialysis) 2 Desirable: <150 Borderline High: 150-199 High: 200-499 Very High: >500 3 Desirable: <200 Borderline High: 200-239 High: >239 4 Low: <40 Desirable: 40-60 High: >60 5 Desirable: <100 Near Optimal: 100-129 Borderline High: 130-159 High: 160-189 Very High: >189 6 Consistent with Previous Results Reported on 09/25/19. 7 Persistent mild leukocytosis with mild absolute lymphocytosis. A Low-grade lymphoproliferative disorder cannot be excluded. Additional studies as clinically warranted. Reviewed by Dr. Velásquez Procedures Date Code Description Status 10/13/2019 51742 Remove Impact Cerumen Irrigati Completed 10/13/2019 27639 Finger Or Heel Stick Completed 06/18/2015 [id number] Colonoscopy Completed 12/28/2007 55026002 Colonoscopy Completed Medical Devices Description No Information Available Encounters Description No Information Available Assessments Date Code Description Provider 12/29/2019 M79.602 Pain in left arm Kaye Pimentel M.D. 12/29/2019 L03.113 Cellulitis of right upper limb Kaye Pimentel M.D. 10/13/2019 Z00.00 Encounter for general adult medical Alexei Ruby M.D. examination without abnormal findings 10/13/2019 R73.9 Hyperglycemia, unspecified Alexei Ruby M.D. 10/13/2019 H61.23 Impacted cerumen, bilateral Alexei Ruby M.D. 10/13/2019 I48.0 Paroxysmal atrial fibrillation Alexei Ruby M.D. 10/13/2019 Z23 Encounter for immunization Alexei Ruby M.D. Plan of Treatment 12/29/2019 - Kaye Pimentel M.D.M79.602 Pain in left armComments:refer to ortho. ok to take tylenol 650 up to 4 times daily.L03.113 Cellulitis of right upper limbNew Medication:Cephalexin 500 mg - 1 by mouth three times daily .AllComments:Medication Management Patient Understands medications she 's taking? Yes No Are there Barriers to Adherence? Yes No Has the patient been asked about herbal supplements and therapies, and OTC meds? Yes No Care Plan1. Patient has been queried about patient's goals/ preferences and functional/lifestyle goals at relevant visits. If relevant, describe: na2. Treatment goals as explained to the patient: above3. Are there barriers to meeting treatment goals? Yes No If Yes, please describe:4. Self-Management goals as described to the patient: Yes No Functional Status Description No Information Available Mental Status Description No Information Available Referrals Description No Information Available
--- OUTSIDE RECORDS SUMMARY | 2020-01-01 19:27 | XMS REPORT | Continuity of Care Document ---
:1935 External Reference #:[id number] Author Name Dayne Pérez M.D. 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 Avapro 1 by mouth every 90tabs Dayne Paul 12/29/2012 150mg Tablets day Edwina Pérez Potassium Chloride ER 1 by mouth every 90tabs Dayne Paul 02/09/2012 day Edwina Pérez 20Meq Tablets ER Amlodipine Besylate 1 by mouth twice 180tabs Dayne Paul 11/19/2011 5mg a day Edwina Pérez Tablets Multi Vitamin 1 by mouth every Unknown Tablets day Fish Oil 1 tab by mouth Unknown 1000mg every morning Capsules Immunizations Description No Information Available Vital Signs Date Vital Result Comment 12/15/2019 8:26am Height 70 inches 5'10" Weight 178.00 lb with shoes Heart Rate 60 /min BP Systolic Sitting 132 mmHg LA BP Diastolic Sitting 86 mmHg LA BP Systolic Standing 126 mmHg LA BP Diastolic Standing 80 mmHg LA BMI (Body Mass Index) 25.5 kg/m2 Ejection Fraction 55-60% Echo 07/08/17 11/06/2019 1:45pm Height 70 inches 5'10" Weight 177.75 lb with shoes Heart Rate 64 /min BP Systolic Sitting 166 mmHg Lue (regular cuff) BP Diastolic Sitting 78 mmHg Lue (regular cuff) BP Systolic Standing 164 mmHg BP Diastolic Standing 78 mmHg BMI (Body Mass Index) 25.5 kg/m2 Ejection Fraction 55-60% 07/08/2017 Echocardiogram Results Test Acquired Date Facility Test Result H/L Range Note Pre Cath 12/15/2019 [facility] Partial 43.2 seconds High 26.0- 38.[address] [place] [address] PTT [phone] CBC Auto 12/15/2019 [facility] White Blood 11.4 10^3/uL High 3.5-10.[address] [place] [address] [phone] Red Blood Count 5.03 10^6/uL Normal 4.18-5.48 [...] Red Blood Cells % 0.2 Inr/Protime 12/15/2019 [facility] Inr 1.09 Normal 0.82-1.09 1 [address] [place] [address] [phone] Basic Metabolic 12/15/2019 [facility] Sodium 142 mmol/L Normal 135-145 Panel [address] [place] [address] [phone] Potassium 4.5 mmol/L Normal 3.5-5.0 Chloride 106 mmol/L Normal 101-111 Co2 Carbon Dioxide 29 mmol/L Normal 22-32 Anion Gap 7 mmol/L Normal 2-11 Glucose 125 mg/dL High 70-100 Blood Urea Nitrogen 29 mg/dL High 6-24 Creatinine 1.29 mg/dL High 0.67-1.17 BUN/Creatinine Ratio 22.5 High 8-20 Calcium 10.2 mg/dL Normal 8.6-10.3 Egfr Non- 53.2 >60 Egfr 64.4 >60 2 Laboratory test 12/15/2019 [facility] Pathologist (SEE NOTE) 3 finding 101 [facility] [place] [address] [phone] Lipid Panel - 12/08/2019 [facility] Creatine 95 U/L Normal 10- [address] Kinase(CK) 3 [place], [place] [id number] [phone] Comp Metabolic 12/08/2019 [facility] Sodium 141 mmol/L Normal 135-[address] [place] [address] [phone] Potassium 4.8 mmol/L Normal 3.5-5.0 Chloride 106 [...] Egfr Non- 59.0 >60 Egfr 71.3 >60 4 Lipid Profile 12/08/2019 [facility] Triglycerides 141 mg/dL 5 (Trig/Chol/HDL) [address] [place] [address] [phone] Cholesterol 141 mg/dL 6 HDL Cholesterol 37.2 mg/dL 7 LDL Cholesterol 76 mg/dL 8 CBC Auto 12/08/2019 [facility] White Blood 14.6 10^3/uL High 3.5-10.[address] [place] [address] [phone] Red Blood Count 5.11 10^6/uL Normal 4.18-5.48 [...] 1.5-7.7 Abs Lymphocytes 7.5 10^3/uL High 1.0-4.8 9 Abs Monocytes 1.1 10^3/uL High 0-0.8 Abs Eosinophils 0.3 10^3/uL Normal 0-0.6 Abs Basophils 0.1 10^3/uL Normal 0-0.2 Abs Nucleated RBC 0.0 10^3/uL Granulocyte % 38.6 % Lymphocyte % 51.2 % Monocyte % 7.7 % Eosinophil % 2.2 % Basophil % 0.3 % Nucleated Red Blood Cells % 0.1 Laboratory test 12/08/2019 [facility] Magnesium 2.2 mg/dL Normal 1.9-2.7 finding [address] [place] [address] [phone] TSH (Thyroid Stim Horm) 2.40 mcIU/mL Normal 0.34-5.60 Manual 12/08/2019 [facility] Immature 1.0 % Normal 0-9 Differential [address] [facility] [place] [address] [phone] Neutrophil % 44.0 % Band % 1.0 % Normal 0-8 Lymphocytes % 27.0 % Monocytes % 6.0 % Eosinophils % 1.0 % Variant Lymph % 21.0 % High 0-6 RBC Morphology Normal Normal Laboratory test 12/08/2019 [facility] Pathologist Review (SEE NOTE) 10 finding 101 [place] [address] [phone] 1 Standard intensity warfarin therapeutic range: 2.0-3.0 [...] is warranted. Reviewed by Dr. Velásquez 4 Because ethnic data is not always readily [...] 15-29 5 Kidney failure <15 (or dialysis) 5 Desirable: <150 Borderline High: 150-199 High: 200-499 Very High: >500 6 Desirable: <200 Borderline High: 200-239 High: >239 7 Low: <40 Desirable: 40-60 High: >60 8 Desirable: <100 Near Optimal: 100-129 Borderline High: 130-159 High: 160-189 Very High: >189 9 Consistent with Previous Results Reported on 09/25/19. 10 Persistent mild leukocytosis with mild absolute lymphocytosis. A Low-grade lymphoproliferative disorder cannot be excluded. Additional studies as clinically warranted. Reviewed by Dr. Velásquez Procedures Date Code Description Status 11/11/2019 06157 Event Monitor/Phys Review/Interp. Completed 11/06/2019 74178 EKG Tracing & Interpretation Completed 06/21/2019 81099 Holter Monitor Review (24 hr)dr greenwood & interp only Completed Medical Devices Description No Information Available Encounters Type Date Location Provider Dx Diagnosis Office Visit 12/15/2019 [facility] Cassius D. I49.3 Ventricular premature 8:30a Of Rony Fairchild M.D. depolarization I48.3 Typical atrial flutter I49.5 Sick sinus syndrome Z95.2 Presence of prosthetic heart valve I73.9 Peripheral vascular disease, unspecified Office Visit 11/06/2019 [facility] Dayne ArleenJose I49.3 Ventricular 1:40p Cardiology Edwina Pérez premature depolarization R42 Dizziness and giddiness I48.3 Typical atrial flutter I35.0 Nonrheumatic aortic (valve) stenosis E78.00 Pure hypercholesterolemia, unspecified Office Visit 07/03/2019 9:[facility]a [facility] KatJose I49.3 Ventricular Cardiology Obed, N.PJose premature depolarization R42 Dizziness and giddiness I48.3 Typical atrial flutter I35.0 Nonrheumatic aortic (valve) stenosis E78.00 Pure hypercholesterolemia, unspecified I25.10 Athscl heart disease of [place] coronary artery w/o ang pctrs Assessments Date Code Description Provider 12/15/2019 I49.3 Ventricular premature depolarization Cassius Fairchild [...] N.P. 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 coronary artery with 06/21/2019 I49.3 Ventricular premature depolarization Dayne Pérez M.D. 06/21/2019 R00.8 Other abnormalities of heart beat Dayne Pérez M.D. Plan of Treatment Future Appointment(s):05/07/2020 3:40 pm - Dayne P[facility]rez M.D. at [facility]12/15/2019 - Cassius Fairchild M.D.I49.3 Ventricular premature depolarizationNew Orders:Implant Pacemaker, Scheduled: 12/18/19Follow up:1 week after procedureRecommendations:Stop eliquis 2 days before dxrpbfctdR74.3 Typical atrial griycrqR66.5 Tachycardia-zckwjspmsmnD14.2 Presence of prosthetic heart bhluxQ87.9 Peripheral vascular disease, unspecified Functional Status Description No Information Available Mental Status Description No Information Available Referrals Refer to Dr Reason for Referral Status Appt Date Cassius Fairchild MD aflutter with pauses up to 3.8 sec. uncertain Sent 2019 relation to sx's of blurred vision. event monitor in place. carotid disease. please evaluate for pacer. [address] [place] [address] [phone] Jeffrey Mendiola MD carotid stenosis high grade. Sent [address] [place] [address] [phone]
--- OUTSIDE RECORDS SUMMARY | 2020-01-01 19:27 | XMS REPORT | Continuity of Care Document ---
:1935 External Reference #:[id number] Author Name Dayne Pérez M.D. (transmitted by agent of provider Armando Banegas) Address [address] [place] [phone] Care Team Providers Name Role Phone Alexei Ruby MD - Family Medicine Care Team Information Manager Ecommerce [phone] Problems Active Problems Provider Date Aortic valve [...] Unknown Never Smoked Cigarettes Smoking Status Reviewed: 11/06/19 Never Smoked Cigarettes ETOH Use Denies alcohol use Tobacco Use Start: Unknown Patient has never smoked Recreational Drug Use Never Used Drugs Exercise Type/Frequency Exercises regularly 30 mins on treadmill 3 days weekly, and ellipitical and free weights. Bikes in summer Allergies, Adverse Reactions, Alerts Description No Known Drug Allergies Medications Active Medications SIG Qnty Indications Ordering Provider Date Eliquis 1 by mouth 180tabs I48.3 Dayne Paul 04/06/2018 5mg Tablets twice a day Edwina Pérez Crestor 1 by mouth 90tabs Dayne Paul 08/11/2016 10mg Tablets every day Edwina Pérez Inspra 1 by mouth 30tabs Shaneka Clay, 05/14/2015 25mg Tablets every day N.P. Avapro 1 by mouth 90tabs Dayne Paul 12/29/2012 150mg Tablets every day Edwina Pérez Potassium Chloride ER 1 by mouth 90tabs Dayne Paul 02/09/2012 every day Edwina Pérez 20Meq Tablets ER Amlodipine Besylate 1 by mouth 180tabs Dayne Paul 11/19/2011 5mg twice a day Edwina Pérez Tablets Immunizations Description No Information Available Vital Signs Date Vital Result Comment 11/06/2019 1:45pm Height 70 inches 5'10" Weight 177.75 lb with shoes Heart Rate 64 /min BP Systolic Sitting 166 mmHg Lue (regular cuff) BP Diastolic Sitting 78 mmHg Lue (regular cuff) BP Systolic Standing 164 mmHg BP Diastolic Standing 78 mmHg BMI (Body Mass Index) 25.5 kg/m2 Ejection Fraction 55-60% 07/08/2017 Echocardiogram 07/03/2019 8:52am Height 70 inches 5'10" Weight 172.25 lb with shoes Heart Rate 60 /min right radial BP Systolic Sitting 142 mmHg ule, reg cuff BP Diastolic Sitting 80 mmHg ule, reg cuff BP Systolic Standing 144 mmHg ule, reg cuff BP Diastolic Standing 82 mmHg ule, reg cuff BMI (Body Mass Index) 24.7 kg/m2 Ejection Fraction 55-60% echo 07/08/17 Results Description No Information Available Procedures Date Code Description Status 11/06/2019 65429 EKG Tracing & Interpretation Completed 06/21/2019 10028 Holter Monitor Review (24 hr)dr review & interp only Completed 06/19/2019 53329 ECG Monitor/Recording W/Visual Superimposition Scanning Completed 05/30/2019 91224 EKG Tracing & Interpretation Completed Medical Devices Description No Information Available Encounters Type Date Location Provider Dx Diagnosis Office Visit 07/03/2019 [facility] Shaneka Clay, I49.3 Ventricular premature 9:00a N.P. depolarization R42 Dizziness and giddiness I48.3 Typical atrial flutter I35.0 Nonrheumatic aortic (valve) stenosis E78.00 Pure hypercholesterolemia, unspecified I25.10 Athscl heart disease of [place] coronary artery w/o ang pctrs Office Visit 05/30/2019 9:20a [facility] Dayne Paul I48.3 Typical atrial Edwina Pérez flutter I49.3 Ventricular premature depolarization I35.0 Nonrheumatic aortic (valve) stenosis E78.00 Pure hypercholesterolemia, unspecified I10 Essential (primary) hypertension I25.10 Athscl heart disease of [place] coronary artery w/o [facility] pctrs R42 Dizziness and giddiness Assessments Date Code Description Provider 11/06/2019 I49.3 Ventricular premature depolarization Dayne Pérez [...] N.P. 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 coronary artery with 06/21/2019 I49.3 Ventricular premature depolarization Dayne Pérez M.D. 06/21/2019 R00.8 Other abnormalities of heart beat Dayne Pérez M.D. 06/19/2019 R42 Dizziness and giddiness Nurse Visit cc 06/19/2019 I48.92 Unspecified atrial flutter Nurse Visit cc 05/30/2019 I48.3 Typical atrial flutter Dayne Pérez M.D. 05/30/2019 I49.3 Ventricular premature depolarization Dayne Pérez M.D. 05/30/2019 I35.0 Nonrheumatic aortic (valve) stenosis Dayne Pérez M.D. 05/30/2019 E78.00 Pure hypercholesterolemia, unspecified Dayne Pérez M.D. 05/30/2019 I10 Essential (primary) hypertension Dayne Pérez M.D. 05/30/2019 I25.10 Atherosclerotic heart disease of [place] Dayne Pérez M.D. coronary artery with 05/30/2019 R42 Dizziness Dayne Pérez M.D. Plan of Treatment Future Appointment(s):05/07/2020 3:40 pm - Dayne Pérez M.D. at [facility]12/01/2019 9:30 am - Sabrina Cormier NP at [facility]11/06/2019 - Dayne Pérez M.D.I49.3 Ventricular premature ogjllncxchgjvhH65 Dizziness and giddinessNew Xrays:VL Carotid Bilateral, Scheduled: 11/30/19New Orders:Event Monitor, Ordered: 11/06/19Follow up:ov 6 mI48.3 Typical atrial gukfjyjJ07.0 Nonrheumatic aortic (valve) lzeqnsarZ83.00 Pure hypercholesterolemia, unspecified Functional Status Description No Information Available Mental Status Description No Information Available Referrals Description No Information Available
--- OUTSIDE RECORDS SUMMARY | 2020-01-01 19:27 | XMS REPORT | Continuity of Care Document ---
:1935 External Reference #:[id number] Author Name Shaneka Clay N.P. (transmitted by agent of provider Tiffanie Harry) Address [address] 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 Problems Active Problems Provider Date Aortic valve [...] Unknown Never Smoked Cigarettes Smoking Status Reviewed: 12/29/19 Never Smoked Cigarettes ETOH Use Denies alcohol [...] by mouth Unknown 1000mg every morning Capsules Aspirin 81 1 by mouth every Unknown 81mg Tablets day (on hold 12/26) Immunizations Description No Information Available Vital Signs Date Vital Result Comment 12/29/2019 11:28am Height 70 inches 5'10" Weight 176.00 lb with shoes Heart Rate 72 /min BP Systolic Sitting [address] cuff BP Diastolic Sitting 68 mmHg [address] reg cuff BP Systolic Standing 128 mmHg [address] reg cuff BP Diastolic Standing 72 [address] reg cuff Respiratory Rate 14 /min BMI (Body Mass Index) 25.3 kg/m2 Ejection Fraction 55-60% echo.07/08/17 12/25/2019 12:50pm Height 70 inches 5'10" Weight 176.50 lb Heart Rate 72 /min BP Systolic Sitting 144 mmHg ule reg cuff BP Diastolic Sitting 74 mmHg ule reg cuff BMI (Body Mass Index) 25.3 kg/m2 Ejection Fraction 55-60% Echo 07/08/17 Results Test Acquired Date Facility Test Result H/L Range Note Pre Cath 12/15/2019 [facility] Partial 43.2 seconds High 26.0- 38.[address] [place] [address] PTT [phone] CBC Auto 12/15/2019 [facility] White Blood 11.4 10^3/uL High 3.5-10.[address] [place] [address] [phone] Red Blood Count 5.03 10^6/uL Normal 4.18-5.48 [...] Red Blood Cells % 0.2 Inr/Protime 12/15/2019 [facility] Inr 1.09 Normal 0.82-1.09 1 [place], [place] [address] [phone] Basic Metabolic 12/15/2019 [facility] Sodium 142 mmol/L Normal 135-145 [place] [address] [phone] Potassium 4.5 mmol/L Normal 3.5-5.0 Chloride 106 mmol/L Normal 101-111 Co2 Carbon Dioxide 29 mmol/L Normal 22-32 Anion Gap 7 mmol/L Normal 2-11 Glucose 125 mg/dL High 70-100 Blood Urea Nitrogen 29 mg/dL High 6-24 Creatinine 1.29 mg/dL High 0.67-1.17 BUN/Creatinine Ratio 22.5 High 8-20 Calcium 10.2 mg/dL Normal 8.6-10.3 Egfr Non- 53.2 >60 Egfr 64.4 >60 2 Laboratory test 12/15/2019 [facility] Pathologist (SEE [address] Review NOTE) [place] [address] [phone] Laboratory test 12/08/2019 [facility] Pathologist (SEE [address] Review NOTE) [place]EL [place] [address] [phone] Manual 12/08/2019 [facility] Immature 1.0 % Normal 0-[address] [address] [phone] Neutrophil % 44.0 % Band % 1.0 % Normal 0-8 Lymphocytes % 27.0 % Monocytes % 6.0 % Eosinophils % 1.0 % Variant Lymph % 21.0 % High 0-6 RBC Morphology Normal Normal Laboratory test 12/08/2019 [facility] Magnesium 2.2 mg/dL Normal 1.9-2.[address] [place] [address] [phone] TSH (Thyroid Stim Horm) 2.40 mcIU/mL Normal 0.34-5.60 CBC Auto 12/08/2019 [facility] White Blood 14.6 10^3/uL High 3.5-10.[address] [place] [address] [phone] Red Blood Count 5.11 10^6/uL Normal 4.18-5.48 [...] Blood Cells % 0.1 Lipid Profile 12/08/2019 [facility] Triglycerides 141 mg/dL 6 (Trig/Chol/HDL) [address] [place] [address] [phone] Cholesterol 141 mg/dL 7 HDL Cholesterol 37.2 mg/dL 8 LDL Cholesterol 76 mg/dL 9 Comp Metabolic 12/08/2019 [facility] Sodium 141 mmol/L Normal 135-[address] [place] [address] [phone] Potassium 4.8 mmol/L Normal 3.5-5.0 Chloride 106 [...] 71.3 >60 10 Lipid Panel - 12/08/2019 [facility] Creatine 95 U/L Normal 10- [address] Kinase(CK) [place] [address] [phone] 1 Standard intensity warfarin therapeutic range: 2.0-3.0 [...] dialysis) Procedures Date Code Description Status 12/19/2019 21404 EKG, Interpretation Only Completed 12/18/2019 97743 Perm Pacemaker Ventricular Completed 11/11/2019 30538 Event Monitor/Phys Review/Interp. Completed 11/06/2019 73397 EKG Tracing & Interpretation Completed Medical Devices Description No Information Available Encounters Type Date Location Provider Dx Diagnosis Office Visit 12/29/2019 [facility] Shaneka Clay, I48.3 Typical atrial 11:30a Of Service Crew Supervisor N.P. flutter I49.3 Ventricular premature depolarization Z95.2 Presence of prosthetic heart valve I73.9 Peripheral vascular disease, unspecified M25.522 Pain in left elbow Office Visit 12/21/2019 3:40p [facility] Cait Patton, Z95.0 Presence of CENTRIFUGE SEPARATOR OPERATOR cardiac pacemaker I49.5 Sick sinus syndrome I48.3 Typical atrial flutter Office Visit 12/15/2019 8:30a [place] Cassius Eisenberg I49.3 Ventricular Cardiology Roge Fairchild M.D. premature Service Crew Supervisor depolarization I48.3 Typical atrial flutter I49.5 Sick sinus syndrome Z95.2 Presence of prosthetic heart valve I73.9 Peripheral vascular disease, unspecified Office Visit 11/06/2019 [facility] Dayne Paul I49.3 Ventricular 1:40p Cardiology Edwina Pérez premature depolarization R42 Dizziness and giddiness I48.3 Typical atrial flutter I35.0 Nonrheumatic aortic (valve) stenosis E78.00 Pure hypercholesterolemia, unspecified Office Visit 07/03/2019 9:00a [facility] Shaneka Nuñez I49.3 Ventricular Cardiology Foster, N.P. premature depolarization R42 Dizziness and giddiness I48.3 Typical atrial flutter I35.0 Nonrheumatic aortic (valve) stenosis E78.00 Pure hypercholesterolemia, unspecified I25.10 Athscl heart disease of [place] coronary artery w/o ang pctrs Assessments Date Code Description Provider 12/29/2019 I48.3 Typical atrial flutter Shaneka S. Obed, N.P. 12/29/2019 I49.3 Ventricular premature depolarization Shaneka S. Obed, N.P. 12/29/2019 Z95.2 Presence of prosthetic heart valve Shaneka S. Obed, N.P. 12/29/2019 I73.9 Peripheral vascular disease, unspecified Shaneka S. Obed, N.P. 12/29/2019 M25.522 Pain in left elbow Shaneka SJose Clay, N.P. 12/25/2019 Z95.0 Presence of cardiac pacemaker Shaneka S. Obed, N.P. 12/25/2019 I48.3 Typical atrial flutter Shanekasadia Clay, N.P. 12/25/2019 I49.3 Ventricular premature depolarization Shaneka Clay, N.P. 12/25/2019 Z95.2 Presence of prosthetic heart valve Shaneka Clay, N.P. 12/25/2019 I73.9 Peripheral vascular disease, unspecified Shaneka Clay, N.P. 12/25/2019 L76.32 Postprocedural hematoma of skin and Shaneka Clay, N.P. subcutaneous tissue following other procedure 12/21/2019 Z95.0 Presence of cardiac pacemaker Cait Thtanya, CENTRIFUGE SEPARATOR OPERATOR 12/21/2019 I49.5 Sick sinus syndrome Cait Thuman, CENTRIFUGE SEPARATOR OPERATOR 12/21/2019 I48.3 Typical atrial flutter Cait Patton, CENTRIFUGE SEPARATOR OPERATOR 12/18/2019 I49.5 Sick sinus syndrome Cassius Fairchild [...] Pérez M.D. 11/06/2019 E78.00 Pure hypercholesterolemia, unspecified Gail PaulaD. 07/03/2019 I49.3 Ventricular premature depolarization Shaneka Clay, N.P. 07/03/2019 R42 Dizziness and giddiness Shaneka Clay, N.P. 07/03/2019 I48.3 Typical atrial flutter Shaneka Clay, N.P. 07/03/2019 I35.0 Nonrheumatic aortic (valve) stenosis Shaneka Clay, N.P. 07/03/2019 E78.00 Pure hypercholesterolemia, unspecified Shaneka KatJose Clay, N.P. 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 coronary artery with Plan of Treatment Future Appointment(s):01/15/2020 11:30 am - [facility] Pacer Schedule at [facility]05/07/2020 3:40 pm - Dayne Pérez M.D. at [facility] 112/29/2019 - Shaneka Clay N.P.I48.3 Typical atrial zsoqwyyU40.3 Ventricular premature rgldkhdefztkltI73.2 Presence of prosthetic heart xeglbM35.9 Peripheral vascular disease, unspecifiedRecommendations:ok to restart ASAM25.522 Pain in left elbowFollow up:Pacer check 12/2019 OV M 2019Recommendations:Recommend have L elbow eval by PCP Lab order to check for infection/inflammatory markers. Functional Status Description No Information Available Mental Status Description No Information Available Referrals Refer to Dr Reason for Referral Status Appt Date Cassius Fairchild MD aflutter with pauses up to 3.8 sec. uncertain Sent 2019 relation to sx's of blurred vision. event monitor in place. carotid disease. please evaluate for pacer. [facility] [place] [address] [phone] Jeffrey Mendiola MD carotid stenosis high grade. Sent [address] [place] [address] [phone]
--- OUTSIDE RECORDS SUMMARY | 2020-01-01 19:27 | XMS REPORT | Continuity of Care Document ---
:1935 External Reference #:[id number] Author Name Dayne Pérez M.D. 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 [phone] Problems Active Problems Provider Date Aortic valve [...] Result H/L Range Note Pre Cath 12/15/2019 [facility] Partial 43.2 seconds High 26.0- 38.[address] [place] [address] PTT [phone] CBC Auto 12/15/2019 [facility] White Blood 11.4 10^3/uL High 3.5-10.[address] [place] [address] [phone] Red Blood Count 5.03 10^6/uL Normal 4.18-5.48 [...] Red Blood Cells % 0.2 Inr/Protime 12/15/2019 [facility] Inr 1.09 Normal 0.82-1.09 1 [address] [place] [address] [phone] Basic Metabolic 12/15/2019 [facility] Sodium 142 mmol/L Normal 135-145 Panel [address] [place] [address] [phone] Potassium 4.5 mmol/L Normal 3.5-5.0 Chloride 106 mmol/L Normal 101-111 Co2 Carbon Dioxide 29 mmol/L Normal 22-32 Anion Gap 7 mmol/L Normal 2-11 Glucose 125 mg/dL High 70-100 Blood Urea Nitrogen 29 mg/dL High 6-24 Creatinine 1.29 mg/dL High 0.67-1.17 BUN/Creatinine Ratio 22.5 High 8-20 Calcium 10.2 mg/dL Normal 8.6-10.3 Egfr Non- 53.2 >60 Egfr 64.4 >60 2 Laboratory test 12/15/2019 [facility] Pathologist (SEE NOTE) 3 finding 101 [facility] [place] [address] [phone] Lipid Panel - 12/08/2019 [facility] Creatine 95 U/L Normal 10- [address] Kinase(CK) 3 [place], [place] [id number] [phone] Comp Metabolic 12/08/2019 [facility] Sodium 141 mmol/L Normal 135-[address] [place] [address] [phone] Potassium 4.8 mmol/L Normal 3.5-5.0 Chloride 106 [...] Egfr 71.3 >60 4 Lipid Profile 12/08/2019 [facility] Triglycerides 141 mg/dL 5 (Trig/Chol/HDL) [address] [place] [address] [phone] Cholesterol 141 mg/dL 6 HDL Cholesterol 37.2 mg/dL 7 LDL Cholesterol 76 mg/dL 8 CBC Auto 12/08/2019 [facility] White Blood 14.6 10^3/uL High 3.5-10.[address] [place] [address] [phone] Red Blood Count 5.11 10^6/uL Normal 4.18-5.48 [...] Blood Cells % 0.1 Laboratory test 12/08/2019 [facility] Magnesium 2.2 mg/dL Normal 1.9-2.7 finding [address] [place] [address] [phone] TSH (Thyroid Stim Horm) 2.40 mcIU/mL Normal 0.34-5.60 Manual 12/08/2019 [facility] Immature 1.0 % Normal 0-9 Differential [address] [facility] [place] [address] [phone] Neutrophil % 44.0 % Band % 1.0 % Normal 0-8 Lymphocytes % 27.0 % Monocytes % 6.0 % Eosinophils % 1.0 % Variant Lymph % 21.0 % High 0-6 RBC Morphology Normal Normal Laboratory test 12/08/2019 [facility] Pathologist Review (SEE NOTE) 10 finding [address] [place] [address] [phone] 1 Standard intensity warfarin therapeutic range: 2.0-3.0 [...] Velásquez Procedures Date Code Description Status 11/11/2019 42612 Event Monitor/Phys Review/Interp. Completed 11/06/2019 16920 EKG Tracing & Interpretation Completed 06/21/2019 18263 Holter Monitor Review (24 hr)dr greenwood & interp only Completed Medical Devices Description No Information Available Encounters Type Date Location Provider Dx Diagnosis Office Visit 12/15/2019 [facility] Cassius D. I49.3 Ventricular premature 8:30a [...] Pure hypercholesterolemia, unspecified Office Visit 07/03/2019 9:00a [place] KatJose I49.3 Ventricular Cardiology Obed, N.PJose premature depolarization R42 Dizziness and giddiness I48.3 Typical atrial flutter I35.0 Nonrheumatic aortic (valve) stenosis E78.00 Pure hypercholesterolemia, unspecified I25.10 Athscl heart disease of [place] coronary artery w/o ang pctrs Assessments Date [...] N.P. 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 coronary artery with 06/21/2019 I49.3 Ventricular premature depolarization Dayne Pérez M.D. 06/21/2019 R00.8 Other abnormalities of heart beat Dayne Pérez M.D. Plan of Treatment Future Appointment(s):05/07/2020 3:40 pm - Dayne Pérez M.D. at [facility]12/15/2019 - Cassius Fairchild M.D.I49.3 Ventricular premature depolarizationNew Orders:Implant Pacemaker, Scheduled: 12/18/19Follow up:1 week after procedureRecommendations:Stop eliquis 2 days before xkbopcobaG45.3 Typical atrial edsypelC77.5 Tachycardia-bxwuiembxfsP15.2 Presence of prosthetic heart wfyqfC16.9 Peripheral vascular disease, unspecified Functional Status Description No Information Available Mental Status Description No Information Available Referrals Refer to Dr Reason for Referral Status Appt Date Cassius Fairchild MD aflutter with pauses up to 3.8 sec. uncertain Sent 2019 relation to sx's of blurred vision. event monitor in place. carotid disease. please evaluate for pacer. [address] [place] [address] [phone] Jeffrey Mendiola MD carotid stenosis high grade. Sent [address] [place] [address] [phone]
--- OUTSIDE RECORDS SUMMARY | 2020-01-01 19:27 | XMS REPORT | Continuity of Care Document ---
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 11/19/2011 5mg a day Edwina Pérez Tablets Multi Vitamin 1 by mouth every Unknown Tablets day Fish Oil 1 tab by mouth Unknown 1000mg every morning Capsules Aspirin 81 1 by mouth every Unknown 81mg Tablets day DR Sheets Description No Information Available Vital Signs Date Vital Result Comment 12/21/2019 3:20pm Height 70 inches 5'10" Weight 176.25 lb with shoes Heart Rate 78 /min BP Systolic Sitting 158 mmHg Rue (regular cuff) BP Diastolic Sitting 72 mmHg Rue (regular cuff) BP Systolic Standing 152 mmHg BP Diastolic Standing 74 mmHg BMI (Body Mass Index) 25.3 kg/m2 Ejection Fraction 55-60% Echocardiogram 07/08/2017 12/15/2019 8:26am Height 70 inches 5'10" Weight 178.00 lb with shoes Heart Rate 60 /min BP Systolic Sitting 132 mmHg LA BP Diastolic Sitting 86 mmHg LA BP Systolic Standing 126 mmHg LA BP Diastolic Standing 80 mmHg LA BMI (Body Mass Index) 25.5 kg/m2 Ejection Fraction 55-60% Echo 07/08/17 Results Test Acquired Date Facility Test Result H/L Range Note Pre Cath 12/15/2019 [facility] Partial 43.2 seconds High 26.0- 38.[address] [place] [address] PTT [phone] CBC Auto 12/15/2019 [facility] White Blood 11.4 10^3/uL High 3.5-10.[address] [place] [address] [phone] Red Blood Count 5.03 10^6/uL Normal 4.18-5.48 [...] Red Blood Cells % 0.2 Inr/Protime 12/15/2019 [facility] Inr 1.09 Normal 0.82-1.09 1 [address] [place] [address] [phone] Basic Metabolic 12/15/2019 [facility] Sodium 142 mmol/L Normal 135-145 Panel [address] [place] [address] [phone] Potassium 4.5 mmol/L Normal 3.5-5.0 Chloride 106 mmol/L Normal 101-111 Co2 Carbon Dioxide 29 mmol/L Normal 22-32 Anion Gap 7 mmol/L Normal 2-11 Glucose 125 mg/dL High 70-100 Blood Urea Nitrogen 29 mg/dL High 6-24 Creatinine 1.29 mg/dL High 0.67-1.17 BUN/Creatinine Ratio 22.5 High 8-20 Calcium 10.2 mg/dL Normal 8.6-10.3 Egfr Non- 53.2 >60 Egfr 64.4 >60 2 Laboratory test 12/15/2019 [facility] Pathologist (SEE NOTE) 3 finding 101 [facility] [place] [address] [phone] Lipid Panel - 12/08/2019 [facility] Creatine 95 U/L Normal 10- [address] Kinase(CK) 3 [place] [address] [phone] Comp Metabolic 12/08/2019 [facility] Sodium 141 mmol/L Normal 135-[address] [place] [address] [phone] Potassium 4.8 mmol/L Normal 3.5-5.0 Chloride 106 [...] Egfr 71.3 >60 4 Lipid Profile 12/08/2019 [facility] Triglycerides 141 mg/dL 5 (Trig/Chol/HDL) [address] [place] [address] [phone] Cholesterol 141 mg/dL 6 HDL Cholesterol 37.2 mg/dL 7 LDL Cholesterol 76 mg/dL 8 CBC Auto 12/08/2019 [facility] White Blood 14.6 10^3/uL High 3.5-10.[address] [place] [address] [phone] Red Blood Count 5.11 10^6/uL Normal 4.18-5.48 [...] Blood Cells % 0.1 Laboratory test 12/08/2019 [facility] Magnesium 2.2 mg/dL Normal 1.9-2.7 finding [address] [place] [address] [phone] TSH (Thyroid Stim Horm) 2.40 mcIU/mL Normal 0.34-5.60 Manual 12/08/2019 [facility] Immature 1.0 % Normal 0-9 Differential [address] [facility] [place] [place] [address] [phone] Neutrophil % 44.0 % Band % 1.0 % Normal 0-8 Lymphocytes % 27.0 % Monocytes % 6.0 % Eosinophils % 1.0 % Variant Lymph % 21.0 % High 0-6 RBC Morphology Normal Normal Laboratory test 12/08/2019 [facility] Pathologist Review (SEE NOTE) 10 finding [address] [place] [address] [phone] 1 Standard intensity warfarin therapeutic range: 2.0-3.0 [...] Dr. Velásquez Procedures Date Code Description Status 12/18/2019 55935 Perm Pacemaker Ventricular Completed 11/11/2019 37180 Event Monitor/Phys Review/Interp. Completed 11/06/2019 92548 EKG Tracing & Interpretation Completed Medical Devices Description No Information Available Encounters Type Date Location Provider Dx Diagnosis Office Visit 12/15/2019 [facility] Cassius Gutierrez49.3 Ventricular premature 8:30a Of Rony Fairchild M.D. depolarization I48.3 Typical atrial flutter I49.5 Sick sinus syndrome Z95.2 Presence of prosthetic heart valve I73.9 Peripheral vascular disease, unspecified Office Visit 11/06/2019 [place] Dayne Paul I49.3 Ventricular 1:40p Cardiology Edwina Pérez premature depolarization R42 Dizziness and giddiness I48.3 Typical atrial flutter I35.0 Nonrheumatic aortic (valve) stenosis E78.00 Pure hypercholesterolemia, unspecified Office Visit 07/03/2019 9:00a [place] Joaquin I49.3 Ventricular Cardiology Obed N.PJose premature depolarization R42 Dizziness and giddiness I48.3 Typical atrial flutter I35.0 Nonrheumatic aortic (valve) stenosis E78.00 Pure hypercholesterolemia, unspecified I25.10 Athscl heart disease of [place] coronary artery w/o ang pctrs Assessments Date Code Description Provider 12/21/2019 Z95.0 Presence of cardiac pacemaker Cait Patton, DRUM HANDLER 12/21/2019 I49.5 Sick sinus syndrome Cait Patton, DRUM HANDLER 12/21/2019 I48.3 Typical atrial flutter Cait Patton, DRUM HANDLER 12/18/2019 I49.5 Sick sinus syndrome Cassius Fairchild [...] N.P. 07/03/2019 R42 Dizziness and giddiness Shaneka SJose Clay, N.P. 07/03/2019 I48.3 Typical atrial flutter Shaneka Clay, N.P. 07/03/2019 I35.0 Nonrheumatic aortic (valve) stenosis Shaneka SJose Clay, N.P. 07/03/2019 E78.00 Pure hypercholesterolemia, unspecified Shaneka SJose Clay, N.P. 07/03/2019 I25.10 Atherosclerotic heart disease of [place] Shaneka Clay N.P. coronary artery with Plan of Treatment Future Appointment(s):12/25/2019 1:00 pm - Shaneka Clay NJoseP. at [facility]05/07/2020 3:40 pm - Dayne Pérez M.D. at [facility] - Cait Patton, NPZ95.0 Presence of cardiac pacemakerRecommendations: You appear to have dependent edema in your left hand/fingers. You have good pulses and left extremity is warm to touch. Please start moving your left arm so you do not get a stiff joint. But, DO NOT lift left arm above your shoulder or reach behind you and DO NOT lift more than 5 lbs. Wear left arm immobilizer during night time hours. If your pacemaker site starts to become painful, or swelling expands ( gets bigger) please call our office or go to ER. STOP taking Motrin and avoid other ZDTIGEE83.5 Sick sinus cvyntdwtM21.3 Typical atrial flutter Functional Status Description No Information Available Mental Status Description No Information Available Referrals Refer to Reason for Referral Status Appt Date Cassius Fairchild MD aflutter with pauses up to 3.8 sec. uncertain Sent 2019 relation to sx's of blurred vision. event monitor in place. carotid disease. please evaluate for pacer. [address] [place] [address] [phone] Jeffrey Mendiola MD carotid stenosis high grade. Sent [address] [place] [address] [phone]
--- OUTSIDE RECORDS SUMMARY | 2020-01-01 19:27 | XMS REPORT | Continuity of Care Document ---
:1935 External Reference #:[id number] Author Name Cait Patton NP (transmitted by agent of provider Yomaira Brewster) Address [address] [place] [address] Care Team Providers Name Role Phone Alexei Ruby MD - Family Medicine Care Team Information Ostrich Farmer [phone] Problems Active Problems Provider Date Aortic valve [...] 38.[address] [place] [address] PTT [phone] CBC Auto 12/15/2019 [facility] White Blood 11.4 10^3/uL High 3.5-10.[address] [place] [address] [phone] Red Blood Count 5.03 10^6/uL Normal 4.18-5.48 [...] [facility] 1.09 Normal 0.82-1.09 1 [address] [place] [address] [phone] Basic Metabolic 12/15/2019 [facility] Sodium 142 mmol/L Normal 135-145 Panel [address] [place] [address] [phone] Potassium 4.5 mmol/L Normal 3.5-5.0 Chloride 106 [...] 12/15/2019 [facility] Pathologist (SEE NOTE) 3 finding [address] [facility] [place] [address] [phone] Lipid Panel - 12/08/2019 [facility] Creatine 95 U/L Normal 10- [address] Kinase(CK) 3 [place] [address] [phone] Comp Metabolic 12/08/2019 [facility] Sodium 141 mmol/L Normal 135-[address] [place] [address] [phone] Potassium 4.8 mmol/L Normal 3.5-5.0 Chloride 106 [...] Egfr 71.3 >60 4 Lipid Profile 12/08/2019 [facility] Triglycerides 141 mg/dL 5 (Trig/Chol/HDL) [address] [place] [address] [phone] Cholesterol 141 mg/dL 6 HDL Cholesterol 37.2 mg/dL 7 LDL Cholesterol 76 mg/dL 8 CBC Auto 12/08/2019 [facility] White Blood 14.6 10^3/uL High 3.5-10.[address] [place] [address] [phone] Red Blood Count 5.11 10^6/uL Normal 4.18-5.48 [...] Blood Cells % 0.1 Laboratory test 12/08/2019 [facility] Magnesium 2.2 mg/dL Normal 1.9-2.7 finding [address] [place] [address] [phone] TSH (Thyroid Stim Horm) 2.40 mcIU/mL Normal 0.34-5.60 Manual 12/08/2019 [facility] Immature 1.0 % Normal 0-9 Differential [address] [facility] [place] [address] [phone] Neutrophil % 44.0 % Band % 1.0 % Normal 0-8 Lymphocytes % 27.0 % Monocytes % 6.0 % Eosinophils % 1.0 % Variant Lymph % 21.0 % High 0-6 RBC Morphology Normal Normal Laboratory test 12/08/2019 [facility] Pathologist Review (SEE NOTE) 10 finding [address] [place] [address] [phone] 1 Standard intensity warfarin therapeutic range: 2.0-3.0 [...] Velásquez Procedures Date Code Description Status 12/18/2019 80935 Perm Pacemaker Ventricular Completed 11/11/2019 69102 Event Monitor/Phys Review/Interp. Completed 11/06/2019 54563 EKG Tracing & Interpretation Completed 06/21/2019 02456 Holter Monitor Review (24 hr)dr greenwood & interp only Completed Medical Devices Description No Information Available Encounters Type Date Location Provider Dx Diagnosis Office Visit 12/15/2019 [facility] Cassius Eisenberg I49.3 Ventricular premature 8:30a Of Rony Fairchild M.D. depolarization I48.3 Typical atrial flutter I49.5 Sick sinus syndrome Z95.2 Presence of prosthetic heart valve I73.9 Peripheral vascular disease, unspecified Office Visit 11/06/2019 [place] Dayne Paul I49.3 Ventricular 1:40p Cardiology Edwina Pérez premature depolarization R42 Dizziness and giddiness I48.3 Typical atrial flutter I35.0 Nonrheumatic aortic (valve) stenosis E78.00 Pure hypercholesterolemia, unspecified Office Visit 07/03/2019 9:00a Wilfrido Nuñez I49.3 Ventricular Cardiology Adam Clay premature depolarization R42 Dizziness and giddiness I48.3 Typical atrial flutter I35.0 Nonrheumatic aortic (valve) stenosis E78.00 Pure hypercholesterolemia, unspecified I25.10 Athscl heart disease of [place] coronary artery w/o ang pctrs Assessments Date Code Description Provider 12/21/2019 Z95.0 Presence of cardiac pacemaker Cait Patton, PSYCHOLOGY FELLOW 12/21/2019 I49.5 Sick sinus syndrome Cait Patton, PSYCHOLOGY FELLOW 12/21/2019 I48.3 Typical atrial flutter Ciat Patton, PSYCHOLOGY FELLOW 12/18/2019 I49.5 Sick sinus syndrome Cassius Fairchild [...] M.D. 11/06/2019 I35.0 Nonrheumatic aortic (valve) stenosis Dyane Pérez M.D. 11/06/2019 E78.00 Pure hypercholesterolemia, unspecified Dayne Pérez M.D. 07/03/2019 I49.3 Ventricular premature depolarization Shaneka Clay, N.P. 07/03/2019 R42 Dizziness and giddiness Shaneka SJose Clay, N.P. 07/03/2019 I48.3 Typical atrial flutter Shaneka SJose Clay, N.P. 07/03/2019 I35.0 Nonrheumatic aortic (valve) stenosis Shaneka SJose Clay, N.P. 07/03/2019 E78.00 Pure hypercholesterolemia, unspecified Shaneka S. Obed, N.P. 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 coronary artery with 06/21/2019 I49.3 Ventricular premature depolarization Dayne Pérez M.D. 06/21/2019 R00.8 Other abnormalities of heart beat Dayne Pérez M.D. Plan of Treatment Future Appointment(s):12/25/2019 1:00 pm - Shaneka Clay N.PJose at [facility]05/07/2020 3:40 pm - Dayne Pérez M.D. at [facility] - Cait Patton, NPZ95.0 Presence of cardiac [...] ER. STOP taking Motrin and avoid other ISVEIHN01.5 Sick sinus vrwzbqqoD39.3 Typical atrial flutter Functional Status Description No Information Available Mental Status Description No Information Available Referrals Refer to Reason for Referral Status Appt Date Cassius Fairchild MD aflutter with pauses up to 3.8 sec. uncertain Sent 2019 relation to sx's of blurred vision. event monitor in place. carotid disease. please evaluate for pacer. [address] [place] [id number] [phone] Jeffrey Mendiola MD carotid stenosis high grade. Sent [address] [place] [address] [phone]
--- OUTSIDE RECORDS SUMMARY | 2020-01-01 19:27 | XMS REPORT | Continuity of Care Document ---
:1935 External Reference #:[id number] Author Name Shaneka Clay N.P. (transmitted by agent of provider Yomaira Brewster) Address [address] [place] [address] Care Team Providers Name Role Phone Alexei Ruby MD - Family Medicine Care Team Information Chief Of Party [phone] Problems Active Problems Provider Date Aortic valve [...] Unknown Never Smoked Cigarettes Smoking Status Reviewed: 12/25/19 Never Smoked Cigarettes ETOH Use Denies alcohol [...] Available Vital Signs Date Vital Result Comment 12/25/2019 12:50pm Height 70 inches 5'10" Weight 176.50 lb Heart Rate 72 /min BP Systolic Sitting 144 mmHg ule reg cuff BP Diastolic Sitting 74 mmHg ule reg cuff BMI (Body Mass Index) 25.3 kg/m2 Ejection Fraction 55-60% Echo 07/08/17 12/21/2019 3:20pm Height 70 inches 5'10" Weight 176.25 lb with shoes Heart Rate 78 /min BP Systolic Sitting 158 mmHg Rue (regular cuff) BP Diastolic Sitting 72 mmHg Rue (regular cuff) BP Systolic Standing 152 mmHg BP Diastolic Standing 74 mmHg BMI (Body Mass Index) 25.3 kg/m2 Ejection Fraction 55-60% Echocardiogram 07/08/2017 Results Test Acquired Date Facility Test Result H/L Range Note Xray 12/25/2019 [facility] Chest PA & <pending> [address] Lat 2 VWS [place], [place] [id number] [phone] Pre Cath 12/15/2019 [facility] Partial 43.2 seconds High 26.0- 38.[address] [place] [address] PTT [phone] CBC Auto 12/15/2019 [facility] White Blood 11.4 10^3/uL High 3.5-10.[address] [place] [address] [phone] Red Blood Count 5.03 10^6/uL Normal 4.18-5.48 [...] Red Blood Cells % 0.2 Inr/Protime 12/15/2019 [facility] Inr 1.09 Normal 0.82-1.09 1 [address] [place] [address] [phone] Basic Metabolic 12/15/2019 [facility] Sodium 142 mmol/L Normal 135-145 Panel [address] [place] [address] [phone] Potassium 4.5 mmol/L Normal 3.5-5.0 Chloride 106 mmol/L Normal 101-111 Co2 Carbon Dioxide 29 mmol/L Normal 22-32 Anion Gap 7 mmol/L Normal 2-11 Glucose 125 mg/dL High 70-100 Blood Urea Nitrogen 29 mg/dL High 6-24 Creatinine 1.29 mg/dL High 0.67-1.17 BUN/Creatinine Ratio 22.5 High 8-20 Calcium 10.2 mg/dL Normal 8.6-10.3 Egfr Non- 53.2 >60 Egfr 64.4 >60 2 Laboratory test 12/15/2019 [facility] Pathologist (SEE [address] Review NOTE) [place] [address] [phone] Laboratory test 12/08/2019 [facility] Pathologist (SEE [address] Review NOTE) [place] [address] [phone] Manual 12/08/2019 [facility] Immature 1.0 % Normal 0-[address] [place] [address] [phone] Neutrophil % 44.0 % Band % 1.0 % Normal 0-8 Lymphocytes % 27.0 % Monocytes % 6.0 % Eosinophils % 1.0 % Variant Lymph % 21.0 % High 0-6 RBC Morphology Normal Normal Laboratory test 12/08/2019 [facility] Magnesium 2.2 mg/dL Normal 1.9-2.[address] [place] [address] [phone] TSH (Thyroid Stim Horm) 2.40 mcIU/mL Normal 0.34-5.60 CBC Auto 12/08/2019 [facility] White Blood 14.6 10^3/uL High 3.5-10.[address] [place] [address] [phone] Red Blood Count 5.11 10^6/uL Normal 4.18-5.48 [...] Blood Cells % 0.1 Lipid Profile 12/08/2019 [facility] Triglycerides 141 mg/dL 6 (Trig/Chol/HDL) [address] [place] [address] [phone] Cholesterol 141 mg/dL 7 HDL Cholesterol 37.2 mg/dL 8 LDL Cholesterol 76 mg/dL 9 Comp Metabolic 12/08/2019 [facility] Sodium 141 mmol/L Normal 135-145 Panel [address] [place] [address] [phone] Potassium 4.8 mmol/L Normal 3.5-5.0 Chloride 106 [...] 71.3 >60 10 Lipid Panel - 12/08/2019 [facility] Creatine 95 U/L Normal 10- [address] Kinase(CK) [place] [address] [phone] 1 Standard intensity warfarin therapeutic range: 2.0-3.0 [...] (or dialysis) Procedures Date Code Description Status 12/18/2019 50609 Perm Pacemaker Ventricular Completed 11/11/2019 50535 Event Monitor/Phys Review/Interp. Completed 11/06/2019 96191 EKG Tracing & Interpretation Completed Medical Devices Description No Information Available Encounters Type Date Location Provider Dx Diagnosis Office Visit 12/25/2019 [facility] Shaneka Clay, Z95.0 Presence of 1:00p N.P. cardiac pacemaker I48.3 Typical atrial flutter I49.3 Ventricular premature depolarization Z95.2 Presence of prosthetic heart valve I73.9 Peripheral vascular disease, unspecified L76.32 Postproc hematoma of skin, subcu following other procedure Office Visit 12/21/2019 3:40p [facility] Cait Patton, Z95.0 Presence of SCHOOL JANITOR cardiac pacemaker I49.5 Sick sinus syndrome I48.3 Typical atrial flutter Office Visit 12/15/2019 8:30a Gustavo Eisenberg I49.3 Ventricular Cardiology Roge Fairchild M.D. premature Investment Fund Manager depolarization I48.3 Typical atrial flutter I49.5 Sick sinus syndrome Z95.2 Presence of prosthetic heart valve I73.9 Peripheral vascular disease, unspecified Office Visit 11/06/2019 Outing Dayne Paul I49.3 Ventricular 1:40p Cardiology Edwina Pérez premature depolarization R42 Dizziness and giddiness I48.3 Typical atrial flutter I35.0 Nonrheumatic aortic (valve) stenosis E78.00 Pure hypercholesterolemia, unspecified Office Visit 07/03/2019 9:00a Outing Shaneka Nuñez I49.3 Ventricular Cardiology Obed, N.P. premature depolarization R42 Dizziness and giddiness I48.3 Typical atrial flutter I35.0 Nonrheumatic aortic (valve) stenosis E78.00 Pure hypercholesterolemia, unspecified I25.10 Athscl heart disease of [place] coronary artery w/o ang pctrs Assessments Date Code Description Provider 12/25/2019 Z95.0 Presence of cardiac pacemaker Shaneka S. Obed, N.P. 12/25/2019 I48.3 Typical atrial flutter Shaneka S. Obed, N.P. 12/25/2019 I49.3 Ventricular premature depolarization Shaneka S. Obed, N.P. 12/25/2019 Z95.2 Presence of prosthetic heart valve Shaneka S. Obed, N.P. 12/25/2019 I73.9 Peripheral vascular disease, unspecified Shaneka S. Obed, N.P. 12/25/2019 L76.32 Postprocedural hematoma of skin and Shaneka S. Foster, N.P. subcutaneous tissue following other procedure 12/21/2019 Z95.0 Presence of cardiac pacemaker Cait Thuman, SCHOOL JANITOR 12/21/2019 I49.5 Sick sinus syndrome Cait Thuman, SCHOOL JANITOR 12/21/2019 I48.3 Typical atrial flutter Caitemanuel Patton, SCHOOL JANITOR 12/18/2019 I49.5 Sick sinus syndrome Cassius Fairchild [...] N.P. 07/03/2019 E78.00 Pure hypercholesterolemia, unspecified Shaneka Clay N.P. 07/03/2019 I25.10 Atherosclerotic heart disease of [place] Connor Quintanilla.Kong coronary artery with Plan of Treatment Future Appointment(s):01/15/2020 11:30 am - Ica Pacer Schedule at [facility]01/05/2020 11:00 am - Shaneka Clay N.P. at [facility]05/07/2020 3:40 pm - Dayne Pérez M.D. at [facility]12/25/2019 - Shaneka Clay N.P.Z95.0 Presence of cardiac wjamibtzkC76.3 Typical atrial flutterRecommendations:Continue UteoqrlK34.3 Ventricular premature robgbywvexqlmsY28.2 Presence of prosthetic heart lfbndJ19.9 Peripheral vascular disease, ohbkmbvysewT78.32 Postprocedural hematoma of skin and subcutaneous tissue following other procedureFollow up:OV Shaneka (quick wound check) 12/29 (afternoon please) PO/OV 3-4 weeks Shaneka at [facility] 04/2020 OV JFMRecommendations:Stay off ASA for now. Ok to change dressing daily - Telfa (non-stick pads) and tape to secure. Functional Status Description No Information Available Mental Status Description No Information Available Referrals Refer to Dr Reason for Referral Status Appt Date Cassius Fairchild MD aflutter with pauses up to 3.8 sec. uncertain Sent 2019 relation to sx's of blurred vision. event monitor in place. carotid disease. please evaluate for pacer. [address] [place] [address] [phone] Jeffrey Mendiola MD carotid stenosis high grade. Sent [address] [place], [place] [id number] [phone]
--- OUTSIDE RECORDS SUMMARY | 2020-01-01 19:27 | XMS REPORT | Continuity of Care Document ---
:1935 External Reference #:[id number] Author Name Cassius Fairchild M.D. (transmitted by agent of provider Azul Nelson) Address [address] [place] [address] Care Team Providers Name Role Phone Alexei Ruby MD - Family Medicine Care Team Information Neuropsychology Director [phone] Problems Active Problems Provider Date Aortic valve [...] Test Result H/L Range Note Pre Cath Panel 12/15/2019 [facility] Partial <pending> [address] [place] [address] PTT [phone] Lipid Panel - 12/08/2019 [facility] Creatine 95 U/L Normal 10- [address] Kinase(CK) [place] [address] [phone] Comp Metabolic 12/08/2019 [facility] Sodium 141 mmol/L Normal 135-[address] [place] [address] [phone] Potassium 4.8 mmol/L Normal 3.5-5.0 Chloride 106 [...] >60 Egfr 71.3 >60 1 Lipid Profile 12/08/2019 [facility] Triglycerides 141 mg/dL 2 (Trig/Chol/HDL) [address] [place] [address] [phone] Cholesterol 141 mg/dL 3 HDL Cholesterol 37.2 mg/dL 4 LDL Cholesterol 76 mg/dL 5 CBC Auto 12/08/2019 [facility] White Blood 14.6 10^3/uL High 3.5-10.[address] [place] [address] [phone] Red Blood Count 5.11 10^6/uL Normal 4.18-5.48 [...] Blood Cells % 0.1 Laboratory test 12/08/2019 [facility] Magnesium 2.2 mg/dL Normal 1.9-2.[address] [place] [address] [phone] TSH (Thyroid Stim Horm) 2.40 mcIU/mL Normal 0.34-5.60 Manual 12/08/2019 [facility] Immature 1.0 % Normal 0-9 Differential [address] [facility] [place] [address] [phone] Neutrophil % 44.0 % Band % 1.0 % Normal 0-8 Lymphocytes % 27.0 % Monocytes % 6.0 % Eosinophils % 1.0 % Variant Lymph % 21.0 % High 0-6 RBC Morphology Normal Normal Laboratory test 12/08/2019 [facility] Pathologist Review (SEE NOTE) 7 finding [address] [place] [address] [phone] 1 Because ethnic data is not always [...] Dr. Velásquez Procedures Date Code Description Status 11/06/2019 46895 EKG Tracing & Interpretation Completed 06/21/2019 81194 Holter Monitor Review (24 hr)dr timo & interp only Completed 06/19/2019 81228 ECG Monitor/Recording W/Visual Superimposition Scanning Completed Medical Devices Description No Information Available Encounters Type Date Location Provider Dx Diagnosis Office Visit 11/06/2019 [facility] Dayne Paul I49.3 Ventricular premature 1:40p Edwina Pérez depolarization R42 Dizziness and giddiness I48.3 Typical atrial flutter I35.0 Nonrheumatic aortic (valve) stenosis E78.00 Pure hypercholesterolemia, unspecified Office Visit 07/03/2019 9:00a Savannacarmelita Nuñez I49.3 Ventricular Cardiology Adam Clay premature depolarization R42 Dizziness and giddiness I48.3 Typical atrial flutter I35.0 Nonrheumatic aortic (valve) stenosis E78.00 Pure hypercholesterolemia, unspecified I25.10 Athscl heart disease of [place] coronary artery w/o ang pctrs Assessments Date Code Description Provider 12/15/2019 I49.3 Ventricular premature depolarization Cassius Fairchild M.D. 12/15/2019 I48.3 Typical atrial flutter Cassius Fairchild M.D. 12/15/2019 I49.5 Tachycardia-bradycardia Cassius Fairchild M.D. 11/06/2019 I49.3 Ventricular premature depolarization Dayne [...] N.P. 07/03/2019 I25.10 Atherosclerotic heart disease of [place] Shaneka Clay, N.P. coronary artery with 06/21/2019 I49.3 Ventricular premature depolarization Dayne Pérez M.D. 06/21/2019 R00.8 Other abnormalities of heart beat Dayne Pérez M.D. 06/19/2019 R42 Dizziness and giddiness Nurse Visit cc 06/19/2019 I48.92 Unspecified atrial flutter Nurse Visit cc Plan of Treatment Future Appointment(s):12/26/2019 9:30 am - Shaneka Clay N.P. at [facility]12/18/2019 1:00 pm - Cassius Fairchild M.D. at [facility]05/07/2020 3:40 pm - Dayne Pérez M.D. at [facility]12/15/2019 - Cassius Fairchild M.D.I49.3 Ventricular premature depolarizationNew Orders:Implant Pacemaker, Ordered: 12/15/19Follow up:1 week after procedureRecommendations:Stop eliquis 2 days before hninljxibT78.3 Typical atrial qcpjxttL58.5 Tachycardia-bradycardia Functional Status Description No Information Available Mental Status Description No Information Available Referrals Refer to Dr Reason for Referral Status Appt Date Cassius Fairchild MD aflutter with pauses up to 3.8 sec. uncertain Sent 2019 relation to sx's of blurred vision. event monitor in place. carotid disease. please evaluate for pacer. [facility] [place] [address] [phone] Jeffrey Mendiola MD carotid stenosis high grade. Sent [address] [place] [address] [phone]
--- OUTSIDE RECORDS SUMMARY | 2020-01-01 19:27 | XMS REPORT | Continuity of Care Document ---
:1935 External Reference #:[id number] Author Name Ney Girard, OD Address [address] [place] [address] Care Team Providers Name Role Phone Tung RICHARDS, [facility] Care Team Information Health Information Management Director Problems Active Problems Provider Date Lens Replaced By Other Means Ney Hidalgo O.D. Onset: 07/08/2015 Presbyopia Ney Hidalgo O.D. Onset: 07/08/2015 Benign neoplasm of eyelid including canthus Ney Hidalgo O.D. Onset: 07/08 Vitreous degeneration Ney Hidalgo O.D. Onset: 07/08/2015 Social History Type Date Description Comments Sex Unknown ETOH Use Never used alcohol Tobacco Use Start: Unknown Patient has never smoked Smoking Status Reviewed: 12/08/19 Patient has never smoked Allergies, Adverse Reactions, Alerts Description No Known Drug Allergies Medications Active Medications SIG Qnty Indications Ordering Provider Date Metoprolol Tartrate Take 1/2 Tablet Unknown 25mg Twice Daily Tablets Amlodipine Besylate Unknown 5mg Tablets Potassium Chloride Unknown Kirstin ER 20Meq Tablets ER Crestor Unknown 5mg Tablets Fish Oil Unknown Capsules Xarelto 1 by mouth every Unknown 15mg Tablets day Eliquis Take One Tablet Unknown 5mg Tablets By Mouth Twice A Day Immunizations Description No Information Available Vital Signs Date Vital Result Comment 12/08/2019 3:20pm Intraocular Pressure Right Eye 15 mmHg Intraocular Pressure Left Eye 15 mmHg 07/08/2015 9:22am Intraocular Pressure Right Eye 16 mmHg Intraocular Pressure Left Eye 16 mmHg Results Description No Information Available Procedures Date Code Description Status 12/08/2019 59224 Refraction Completed 12/08/2019 34981 Eye Exam New Comprehensive Completed Medical Devices Description No Information Available Encounters Description No Information Available Assessments Date Code Description Provider 12/08/2019 H43.813 Vitreous degeneration, bilateral Ney Girard, OD 12/08/2019 Z96.1 Presence of intraocular lens Ney Girard, OD 12/08/2019 H52.4 Presbyopia Ney Girard, OD 12/08/2019 D23.111 Other benign neoplasm of skin of right upper Ney Girard, OD eyelid, including canthus Plan of Treatment 12/08/2019 - Ney Girard, ODH43.813 Vitreous degeneration, dwozjsbfgY00.1 Presence of intraocular lensH52.4 NkmwiufoekA69.111 Other benign neoplasm of skin of right upper eyelid, including canthusFollow up:yearly full, sooner PRN Functional Status Description No Information Available Mental Status Description No Information Available Referrals Description No Information Available
--- NOTE | 2020-01-01 20:58 | ED ---
Upper Extremity Pain - HPI Summary HPI Summary: This pt is an 84 Y/O M presenting to [facility] for a CC of a DVT that [facility] at [facility] earlier this morning. He states that he has an infection S/P pacemaker surgery that resulted in an infection in the LUE. He states that he has been on ABx Tx for the past 3 days due to the infection. He states that the pain to his LUE is a 2/10 which is also where the DVT is located. He states that he has been having swelling and associated pain in his LUE. He states that the onset was around a week ago but noted that the swelling and pain has decreased. He denies any fevers, chills, headaches, and N/V. He has no aggravating or alleviating factors. 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 He states that he currently takes Eliquis as a blood thinner. - History of Current Complaint Chief Complaint: EDExtremityUpper Stated Complaint: DVT ON LT ARM PER PT Time Seen by Provider: 01/01/20 20:48 Hx Obtained From: Patient Mechanism Of Injury: Other - s/p pacemaker surgery, Dx DVT in LUE Onset/Duration: Started Weeks Ago - 1, Still Present, Resolved - states that the pain and swelling has decreased Timing: Constant Severity Initially: Mild - 4 Severity Currently: Mild - 2 Pain Location: Shoulder - L Aggravating Factor(s): Nothing Alleviating Factor(s): Nothing Associated Signs & Symptoms: Positive: Negative - headaches, chills, Swelling. Negative: Fever, Chest Pain, SOB, Nausea, Vomiting Related History: Other: - s/p pacemaker, Dx of [facility] from [facility] - Allergies/Home Medications Allergies/Adverse Reactions: Allergies Allergy/AdvReac Type Severity Reaction Status Date / Time No Known Allergies Allergy Verified 01/01/20 19:16 Home Medications: Home Medications Apixaban* [Eliquis*] 5 mg PO BID 01/01/20 [History Confirmed 01/01/20] Aspirin EC TAB* [Ecotrin EC Low Dose 81 MG*] 81 mg PO DAILY 01/01/20 [History Confirmed 01/01/20] Cephalexin CAP* [Keflex CAP*] 250 mg PO TID 01/01/20 [History Confirmed 01/01/20 ] Epleronone (NF) [Inspra (NF)] 25 mg PO DAILY 01/01/20 [History Confirmed ] Multivitamins/Minerals TAB* [Theragran/minerals TAB*] 1 tab PO DAILY 01/01/20 [ History Confirmed 01/01/20] Potassium Chlor TAB* [Klor Con ER TAB*] 20 meq PO DAILY 01/01/20 [History Confirmed 01/01/20] Rosuvastatin (NF) [Crestor (NF)] 10 mg PO DAILY 01/01/20 [History Confirmed 02/15] amLODIPine TAB* [Norvasc 5 mg TAB*] 5 mg PO BID 01/01/20 [History Confirmed 02/15] PMH/Surg Hx/FS Hx/Imm Hx Previously Healthy: Yes Endocrine/Hematology History: Reports: Hx Diabetes - marginal Denies: Hx Thyroid Disease Cardiovascular History: Reports: Hx Hypercholesterolemia, Hx Hypertension - Controlled with meds, Hx Pacemaker/ICD - PLACED ON 12/18/2019., Hx Valvular Heart Disease Denies: Hx Angina Respiratory History: Denies: Hx Asthma, Hx Chronic Obstructive Pulmonary Disease (COPD), Other Respiratory Problems/Disorders GI History: Denies: Hx Ulcer History: Denies: Hx Renal Disease Sensory History: Reports: Hx Contacts or Glasses Denies: Hx Hearing Aid Opthamlomology History: Reports: Hx Contacts or Glasses - Cancer History Hx Chemotherapy: No Hx Radiation Therapy: No - Surgical History Surgical History: Yes Surgery Procedure, Year, and Place: Mitral valve replacement x 4, Aortic valve x 2 - Immunization History Immunizations Up to Date: Yes Infectious Disease History: No Infectious Disease History: Denies: Hx Hepatitis, Hx Human Immunodeficiency Virus (HIV), Traveled Outside the [place] in Last 30 Days - Family History Known Family History: Positive: Cardiac Disease - Brother - Social History Occupation: Retired Lives: With Family Alcohol Use: None Hx Substance Use: No Substance Use Type: Reports: None Hx Tobacco Use: No Smoking Status (MU): Never Smoked Tobacco Have You Smoked in the Last Year: No Review of Systems Negative: Fever, Chills Negative: Chest Pain Negative: Shortness Of Breath Negative: Vomiting, Nausea Positive: Other - LUE pain Skin: Other - swelling in LUE Negative: Headache All Other Systems Reviewed And Are Negative: Yes Physical Exam - Summary Physical Exam Summary: Appearance: Well-appearing, Well-nourished, lying in bed comfortably Skin: Warm, dry, no obvious rash, Pacemaker pocket site in L upper chest has small hematoma with some ecchymosis. L upper chest is not erythematous. Eyes: sclera anicteric, no conjunctival pallor ENT: mucous membranes moist, pharynx appears normal Neck: Supple, nontender Respiratory: Clear to auscultation, no signs of respiratory distress Cardiovascular: Normal S1, S2. No murmurs. Normal distal pulses in tibial and radial bilaterally. Abdomen: Soft, nontender, normal active bowel sounds present Musculoskeletal: Normal, Strength/ROM Intact, L upper arm has no significant swelling, redness or tenderness. Neurological: A&Ox3, awake and alert, mentation is normal, speech is fluent and appropriate Psychiatric: affect is normal, does not appear anxious or depressed Triage Information Reviewed: Yes Vital Signs On Initial Exam: Initial Vitals Temp Pulse Resp BP Pulse Ox 97.7 F 71 15 192/95 98 01/01/20 19:13 01/01/20 19:13 01/01/20 19:13 01/01/20 19:13 01/01/20 19:13 Vital Signs Reviewed: Yes Procedures - Sedation Patient Received Moderate/Deep Sedation with Procedure: No Diagnostics - Vital Signs Vital Signs Temp Pulse Resp BP Pulse Ox 01/01/20 19:13 97.7 F 71 15 192/95 98 - Laboratory Lab Statement: Any lab studies that have been ordered have been reviewed, and results considered in the medical decision making process. Course/Dx - Course Course Of Treatment: This pt is an 84 Y/O M presenting to [facility] for a CC of a DVT that was found at [facility] care earlier this morning. He states that he has an infection S/P pacemaker surgery that resulted in an infection in the LUE. He states that he has been on ABx Tx for the past 3 days due to the infection. He states that the pain to his LUE is a 2/10 which is also where the DVT is located. He states that he has been having swelling and associated pain in his LUE. He states that the onset was around a week ago but noted that the swelling and pain has decreased. His PE found his L upper chest his pacemaker site has no palpable hematoma or swelling. L upper chest is erythematous. L upper arm has no significant swelling, redness or tenderness. Dr. Fairchild, music publisher, was consulted at 2117. He recommended discharging the pt home and providing outpatient and at home management since the swelling and pain are decreasing. Imaging from [facility] shows a cephalic thrombosis, not a DVT. The pt will be discharged home with a Dx of a superficial thrombophlebitis. I advised him to stop taking the antibiotics. - Diagnoses Provider Diagnoses: Superficial thrombophlebitis - Physician Notifications Discussed Care of Patient With: Cassius Fairchild Time Discussed With Above Provider: 21:18 Instructed by Provider To: Other - Dr. Fairchild, music publisher, was consulted. He recommended discharging the pt home and providing outpatient and at home management since the swelling and pain are decreasing. Discharge ED - Sign-Out/Discharge Documenting (check all that apply): Patient Departure - discharge - Discharge Plan Condition: Good Disposition: HOME Patient Education Materials: Superficial Thrombophlebitis (ED) Referrals: Alexei Ruby MD [Primary Care Provider] - 2 Days Additional Instructions: You have a thrombosis (blood clot) in the cephalic vein of the left arm. This is considered a superficial vein and there is no propagation or spread into the deep veins of the arm, so this is not a dangerous type of clot. At present there is no specific treatment needed, but your doctor will likely want to send you for a followup ultrasound later in the week or early next week to make sure it is clearing and not propagating further. You can stop the antibiotic prescribed last week, but continue to take your eliquis and other medications as ordered. - Billing Disposition and Condition Condition: GOOD Disposition: Home - Attestation Statements Document Initiated by Dionne: Yes Documenting Scribe: Alejo Garza Provider For Whom Dionne is Documenting (Include Credential): Anton Sharp MD Scribe Attestation: I, Alejo Garza, scribed for Anton Sharp MD on 01/02/20 at 1848. Scribe Documentation Reviewed: Yes Provider Attestation: The documentation as recorded by the Alejo blue accurately reflects the service I personally performed and the decisions made by me, Anton Shrap MD Status of Scribe Document: Viewed
[2020-01-01 21:26] VITALS: BP 176/91
== END 2020-01-01 21:24 | disposition home or self-care (01) ==
LOC: ED 19:11
DX: I82.612 Acute embolism and thrombosis of superficial veins of left upper extremity (principal); E11.9 Type 2 diabetes mellitus without complications; I10 Essential (primary) hypertension; Z95.810 Presence of automatic (implantable) cardiac defibrillator; Z79.01 Long term (current) use of anticoagulants; Z95.2 Presence of prosthetic heart valve; Z79.82 Long term (current) use of aspirin; Z79.899 Other long term (current) drug therapy
CPT/HCPCS: 99282

== ENCOUNTER 2021-03-31 16:09 | Inpatient (IN) ==
[2021-03-31 18:17] LABS: Hematocrit 47 % (42-52); Hemoglobin 15.2 g/dL (14.0-18.0); Mean Corpuscular HGB Conc 33 g/dL (31-36); Mean Corpuscular Hemoglobin 30 pg (27-31); Mean Corpuscular Volume 92 fL (80-94); Mean Platelet Volume 8.9 fL (7.4-10.4); Platelet Count 159 10^3/uL (150-450); Red Blood Count 5.05 10^6 /uL (4.18-5.48); Red Cell Distribution Width 15 % (10-15); White Blood Count 11.1 10^3/uL (3.5-10.8)
[2021-03-31 18:44] LABS: ALT 15 U/L (7-52); AST 21 U/L (13-39); Albumin 4.5 g/dL (3.2-5.2); Albumin/Globulin Ratio 1.9 (1-3); Alkaline Phosphatase 174 U/L (34-104); Anion Gap 7 mmol/L (2-11); Blood Urea Nitrogen 40 mg/dL (6-24); CO2 Carbon Dioxide 26 mmol/L (22-32); Calcium 9.7 mg/dL (8.6-10.3); Chloride 108 mmol/L (101-111); EGFR African American 50.1 (>60); EGFR Non-African American 41.4 (>60); Globulin 2.4 g/dL (2-4); Glucose 143 mg/dL (70-100); Potassium 4.6 mmol/L (3.5-5.0); Sodium 141 mmol/L (135-145); Total Protein 6.9 g/dL (6.4-8.9)
[2021-03-31 18:47] LABS: Troponin I 0.03 ng/mL (<0.03)
[2021-03-31] MEDS ORDERED: Iodixanol (CONTRAST) 320 MG/ML 100 ML SDV IV ONE (19:05)
[2021-03-31 19:10] LABS: ABS Basophils 0.1 10^3/ul (0-0.2); ABS Eosinophils 0.2 10^3/ul (0-0.6); ABS Lymphocytes 5.4 10^3/ul (1.0-4.8); ABS Monocytes 0.9 10^3/ul (0-0.8); ABS Neutrophils 4.6 10^3/ul (1.5-7.7); Eosinophil % 1.7 %; Lymphocyte % 48.5 %; Nucleated Red Blood Cells % 0.3
[2021-03-31 21:49] LABS: Troponin I 0.03 ng/mL (<0.03)
[2021-04-01] MEDS ORDERED: Furosemide 40 mg/4 ml IV VIAL IV ONE (01:06)
[2021-04-01 05:03] LABS: Hematocrit 44 % (42-52); Hemoglobin 14.6 g/dL (14.0-18.0); Mean Corpuscular HGB Conc 33 g/dL (31-36); Mean Corpuscular Hemoglobin 30 pg (27-31); Mean Corpuscular Volume 91 fL (80-94); Mean Platelet Volume 8.7 fL (7.4-10.4); Platelet Count 139 10^3/uL (150-450); Red Blood Count 4.85 10^6 /uL (4.18-5.48); Red Cell Distribution Width 15 % (10-15); White Blood Count 10.4 10^3/uL (3.5-10.8)
[2021-04-01 05:14] LABS: Calcium 9.6 mg/dL (8.6-10.3); EGFR African American 44.9 (>60); EGFR Non-African American 37.1 (>60); HDL Cholesterol 28.9 mg/dL; Magnesium 2.2 mg/dL (1.9-2.7); Potassium 4.2 mmol/L (3.5-5.0)
[2021-04-01 07:14] LABS: ABS Basophils 0.1 10^3/ul (0-0.2); ABS Eosinophils 0.2 10^3/ul (0-0.6); ABS Lymphocytes 5.6 10^3/ul (1.0-4.8); ABS Monocytes 0.8 10^3/ul (0-0.8); ABS Neutrophils 3.8 10^3/ul (1.5-7.7); Lymphocyte % 53.8 %; Nucleated Red Blood Cells % 0.1
[2021-04-01] MEDS ORDERED: Furosemide 40 mg/4 ml IV VIAL IV SCH (09:00)
[2021-04-01] MEDS: CMCS:Epleronone 25 mg TAB (NF) PO SCH (09:17)
[2021-04-01] MEDS: Aspirin EC 81 mg TAB.EC (enteric coated) PO SCH (09:19)
[2021-04-01] MEDS: Potassium Chlor 20 meq TAB.ER PO SCH (09:19)
[2021-04-02 07:10] LABS: Hematocrit 43 % (42-52); Hemoglobin 14.4 g/dL (14.0-18.0); Mean Corpuscular HGB Conc 33 g/dL (31-36); Mean Corpuscular Hemoglobin 30 pg (27-31); Mean Corpuscular Volume 90 fL (80-94); Mean Platelet Volume 8.4 fL (7.4-10.4); Platelet Count 139 10^3/uL (150-450); Red Blood Count 4.77 10^6 /uL (4.18-5.48); Red Cell Distribution Width 15 % (10-15); White Blood Count 11.6 10^3/uL (3.5-10.8)
[2021-04-02 07:29] LABS: Calcium 9.5 mg/dL (8.6-10.3); EGFR African American 50.4 (>60); EGFR Non-African American 41.7 (>60); Potassium 4.1 mmol/L (3.5-5.0)
[2021-04-02 07:47] LABS: ABS Eosinophils 0.2 10^3/ul (0-0.6); ABS Lymphocytes 6.3 10^3/ul (1.0-4.8); ABS Monocytes 0.9 10^3/ul (0-0.8); ABS Neutrophils 4.2 10^3/ul (1.5-7.7); Eosinophil % 1.8 %; Lymphocyte % 54.2 %; Nucleated Red Blood Cells % 0.3
[2021-04-02] MEDS: Potassium Chlor 20 meq TAB.ER PO SCH (11:10)
[2021-04-02] MEDS ORDERED: Aminophylline 25 MG/ML VIAL ONE (11:53)
[2021-04-02] MEDS ORDERED: Regadenoson 0.4 MG/5 ML SYRINGE ONE (11:53)
[2021-04-02] MEDS: CMCS:Epleronone 25 mg TAB (NF) PO SCH (14:27)
[2021-04-02] MEDS: Aspirin EC 81 mg TAB.EC (enteric coated) PO SCH (14:28)
[2021-04-02 16:47] VITALS: BP 152/64
[2021-04-02 17:14] LABS: Calcium 9.7 mg/dL (8.6-10.3); EGFR Non-African American 39.7 (>60)
== END 2021-04-02 19:30 | disposition home or self-care (01) | DRG 291 ==
LOC: ED 16:09 → MEDTELE 22:44
PROVIDERS: ADMIT Internal Medicine; ATTEND Internal Medicine